=== PATIENT | female | born 1960 | race Caucasian/White ===

== ENCOUNTER 2016-10-01 17:11 | Emergency (ER) | payer BC, OTHER ==
[2016-10-01] MEDS ORDERED: SODIUM CHLORIDE 0.9% 1,000 ML IV ONE (17:27)
[2016-10-01 18:00] LABS: ALBUMIN/GLOBULIN RATIO 1.4 (1.0-2.2); BILIRUBIN,TOTAL 0.6 mg/dL (0.2-1.0); CALCIUM 9.7 mg/dL (8.5-10.3); CREATININE 0.8 mg/dL (0.4-1.0); POTASSIUM 2.9 mmol/L (3.5-5.0); TOTAL PROTEIN 7.9 g/dL (6.7-8.2)
[2016-10-01 18:06] LABS: BASOPHILS # (AUTO) 0.1 10^3/uL (0.0-0.1); BASOPHILS % (AUTO) 1.3 %; EOSINOPHILS # (AUTO) 0.2 10^3/uL (0.0-0.7); EOSINOPHILS % (AUTO) 1.8 %; HCT - HEMATOCRIT 38.5 % (37.0-47.0); HGB - HEMOGLOBIN 13.2 g/dL (12.0-16.0); LYMPHOCYTES # (AUTO) 2.7 10^3/uL (1.5-3.5); LYMPHOCYTES % (AUTO) 31.9 %; MEAN CORPUSCULAR HEMOGLOBIN 28.9 pg (27.0-31.0); MEAN CORPUSCULAR HGB CONC 34.3 g/dL (32.0-36.0); MEAN CORPUSCULAR VOLUME 84.4 fL (81.0-99.0); MEAN PLATELET VOLUME 8.1 fL (7.9-10.8); MONOCYTES # (AUTO) 0.6 10^3/uL (0.0-1.0); MONOCYTES % (AUTO) 7.1 %; NEUTROPHILS % (AUTO) 57.9 %; RED BLOOD COUNT 4.57 10^6/uL (4.20-5.40); RED CELL DISTRIBUTION WIDTH 13.8 % (12.0-15.0); UNCORRECTED WHITE BLOOD COUNT 8.6 x10^3/uL; WHITE BLOOD COUNT 8.6 x10^3/uL (4.8-10.8)
[2016-10-01 18:36] LABS: PLATELET ESTIMATE, MANUAL NORMAL (130-450,000) (NORMAL); PLATELET MORPHOLOGY RARE GIANT PLATELETS (NORMAL); WBC MORPHOLOGY (MULTIPLE) NORMAL APPEARANCE (NORMAL)
[2016-10-01] MEDS ORDERED: POTASSIUM CHLORIDE 20 MEQ TABLET PO STA (18:42)
--- NOTE | 2016-10-01 18:46 | ED Physician Documentation ---
PD HPI CHEST PAIN - Stated complaint Stated Complaint: DIZZY - Chief complaint Chief Complaint: Cardiac - History obtained from History obtained from: Patient - Additional information Additional information: Long H/O palpiations, had neg holter 3 yrs ago. Feels like heart skipping, v brief. No pain/dyspnea/dizzyness. Worse episode today for seconds and a few episodes therafter. Review of Systems Nose: denies: Rhinorrhea / runny nose, Congestion Throat: denies: Dental pain / toothache, Sore throat Cardiac: reports: Palpitations. denies: Chest pain / pressure, Pedal edema, Calf pain Respiratory: denies: Dyspnea PD PAST MEDICAL HISTORY - Past Medical History Past Medical History: Yes Cardiovascular: High cholesterol Respiratory: Asthma - Past Surgical History Past Surgical History: Yes /[employer]: Tubal ligation - Present Medications Home Medications: Ambulatory Orders Medication Instructions Recorded Confirmed Aspirin 1 tab PO DAILY 10/01/16 10/01/16 Rosuvastatin Calcium [Crestor] 10 mg PO DAILY 10/01/16 10/01/16 - Allergies Allergies/Adverse Reactions: Allergies Allergy/AdvReac Type Severity Reaction Status Date / Time No Known Drug Allergies Allergy Verified 10/01/16 17:16 - Social History Does the pt smoke?: No Smoking Status: Never smoker Does the pt drink ETOH?: No Does the pt have substance abuse?: No - Immunizations Immunizations are current?: Yes Immunizations: TDAP >10years/unknown PD ED PE NORMAL - Vitals Vital signs reviewed: Yes - General General: Alert and oriented X 3, No acute distress - Neck Neck: Supple, no meningeal sign, No bony TTP - Cardiac Cardiac: RRR, No murmur - Respiratory Respiratory: No respiratory distress, Clear bilaterally - Abdomen Abdomen: Non tender - Neuro Neuro: Alert and oriented X 3, Normal speech - Psych Psych: Normal mood, Normal affect Results - Vitals Vitals: Vital Signs - 24 hr 10/01/16 10/01/16 17:14 18:19 Temperature 36.7 C Heart Rate 127 H 107 H Respiratory 17 20 Rate Blood Pressure 165/85 H 152/83 H O2 Saturation 100 100 Oxygen O2 Source Room air - EKG (time done) 1723 Rate: Rate (enter#) (116) Rhythm: Sinus tachycardia [place]: Normal Intervals: Normal [place] QRS: Normal Ischemia: Normal ST segments Computer interpretation: Agree with computer - Labs Labs: Laboratory Tests 10/01/16 10/01/16 10/01/16 17:32 17:32 17:32 WBC 8.6 RBC 4.57 Hgb 13.2 Hct 38.5 MCV 84.4 MCH 28.9 MCHC 34.3 RDW 13.8 Plt Count 269 MPV 8.1 Neut # 5.0 Lymph # 2.7 Gillespie # 0.6 Eos # 0.2 Baso # 0.1 Absolute Nucleated RBC 0.00 Nucleated RBCs 0.0 Manual Slide Review Indicated WBC Morphology NORMAL APPEARANCE Platelet Estimate NORMAL (130-450,000) Platelet Morphology RARE GIANT PLATELETS RBC Morph Micro Appear NORMAL APPEARANCE Sodium 140 Potassium 2.9 L Chloride 104 Carbon Dioxide 23 Anion Gap 13.0 BUN 19 Creatinine 0.8 Estimated GFR (MDRD) 74 L Glucose 144 H Lactic Acid Calcium 9.7 Total Bilirubin 0.6 AST 21 ALT 23 Alkaline Phosphatase 96 Troponin I < 0.04 Total Protein 7.9 Albumin 4.6 Globulin 3.3 Albumin/Globulin Ratio 1.4 Lipase 29 10/01/16 17:32 WBC RBC Hgb Hct MCV MCH MCHC RDW Plt Count MPV Neut # Lymph # Gillespie # Eos # Baso # Absolute Nucleated RBC Nucleated RBCs Manual Slide Review WBC Morphology Platelet Estimate Platelet Morphology RBC Morph Micro Appear Sodium Potassium Chloride Carbon Dioxide Anion Gap BUN Creatinine Estimated GFR (MDRD) Glucose Lactic Acid 1.5 Calcium Total Bilirubin AST ALT Alkaline Phosphatase Troponin I Total Protein Albumin Globulin Albumin/Globulin Ratio Lipase PD MEDICAL DECISION MAKING - ED course ED course: She is asymptomatic here although she does remain tachycardic although that improves with time and reassurance. Given that she is asymptomatic here I doubt pulmonary embolism. Her history is most consistent with PVCs which may be related to hypokalemia. Departure - Departure Disposition: 01 Home, Self Care Clinical Impression: Palpitations, Hypokalemia Condition: Good Record reviewed to determine appropriate education?: Yes Instructions: Hypokalemia Dc, Heart Palpitations Follow-Up: Raquel Garza PA-C [Primary Care Provider] - Comments: Call your doctor to arrange a follow up appointment. Make the next available appointment. In the interim return anytime if worse or if new symptoms develop. Your blood pressure was elevated today on check in to the emergency department. This does not mean that you have hypertension, it is a common phenomenon to check into the emergency department and have elevated blood pressure. I recommend that you see your primary care physician within the week to have it rechecked when you're feeling better.
[2016-10-01] MEDS ORDERED: POTASSIUM CHLORIDE 20 MEQ TABLET PO ONE (18:57)
[2016-10-01 19:01] VITALS: BP 150/78
== END 2016-10-01 19:05 | disposition home or self-care (01) ==
LOC: ED 17:11
DX: R00.2 Palpitations (principal); E87.6 Hypokalemia; R03.0 Elevated blood-pressure reading, without diagnosis of hypertension; E78.00 Pure hypercholesterolemia, unspecified; J45.909 Unspecified asthma, uncomplicated; Z79.82 Long term (current) use of aspirin
CPT/HCPCS: 36415; 80053; 83605; 83690; 84484; 85025; 93005; 99283; 99284; A9270

== ENCOUNTER 2016-10-06 07:09 | Outpatient (CLI) | payer BC ==
[2016-10-06 10:20] LABS: BASOPHILS % (AUTO) 0.6 %; EOSINOPHILS # (AUTO) 0.1 10^3/uL (0.0-0.7); EOSINOPHILS % (AUTO) 1.9 %; HGB - HEMOGLOBIN 13.3 g/dL (12.0-16.0); LYMPHOCYTES # (AUTO) 1.4 10^3/uL (1.5-3.5); LYMPHOCYTES % (AUTO) 32.2 %; MEAN CORPUSCULAR HEMOGLOBIN 29.1 pg (27.0-31.0); MEAN CORPUSCULAR HGB CONC 34.2 g/dL (32.0-36.0); MEAN CORPUSCULAR VOLUME 85.1 fL (81.0-99.0); MEAN PLATELET VOLUME 9.6 fL (7.9-10.8); MONOCYTES # (AUTO) 0.4 10^3/uL (0.0-1.0); MONOCYTES % (AUTO) 9.5 %; NEUTROPHILS # (AUTO) 2.5 10^3/uL (1.5-6.6); NEUTROPHILS % (AUTO) 55.8 %; RED BLOOD COUNT 4.59 10^6/uL (4.20-5.40); RED CELL DISTRIBUTION WIDTH 13.6 % (12.0-15.0); UNCORRECTED WHITE BLOOD COUNT 4.4 x10^3/uL; WHITE BLOOD COUNT 4.4 x10^3/uL (4.8-10.8)
[2016-10-06 10:42] LABS: ALBUMIN/GLOBULIN RATIO 1.3 (1.0-2.2); BILIRUBIN,TOTAL 1.2 mg/dL (0.2-1.0); BUN - BLOOD UREA NITROGEN 16 mg/dL (6-20); CALCIUM 9.4 mg/dL (8.5-10.3); CARBON DIOXIDE - CO2 24 mmol/L (21-32); CHLORIDE 106 mmol/L (101-111); CHOL/HDL RATIO 3.5 (<4.4); CHOLESTEROL 183 mg/dL; CREATININE 0.7 mg/dL (0.4-1.0); GFR - MDRD 86 (>89); GLUCOSE 96 mg/dL (70-100); HDL CHOLESTEROL 52 mg/dL; LDL/HDL RATIO 2.2 (<4.4); POTASSIUM 3.6 mmol/L (3.5-5.0); SODIUM 138 mmol/L (135-145); TOTAL PROTEIN 8.1 g/dL (6.7-8.2); TRIGLYCERIDES 93 mg/dL; VLDL CHOLESTEROL 19 mg/dL
[2016-10-06 10:44] LABS: PLATELET MORPHOLOGY RARE GIANT PLATELETS (NORMAL)
== END 2016-10-06 07:10 | disposition home or self-care (01) ==
LOC: LAB.F 07:09
PROVIDERS: ATTEND Physician Assistant Medical
DX: E78.5 Hyperlipidemia, unspecified (principal); F41.9 Anxiety disorder, unspecified; Z79.899 Other long term (current) drug therapy
CPT/HCPCS: 36415; 80053; 80061; 84443; 85025

== ENCOUNTER 2016-10-23 07:57 | Outpatient (CLI) | payer BC | END 2016-10-23 07:58 | disposition home or self-care (01) | LOC: LAB.F 07:57 | PROVIDERS: ATTEND Physician Assistant Medical | DX: R00.2 Palpitations (principal) | CPT/HCPCS: 36415; 84443 ==

== ENCOUNTER 2016-10-27 10:08 | Outpatient (CLI) | payer BC ==
--- NOTE | 2016-10-28 10:25 | Mammography Report ---
DIGITAL BILATERAL SCREENING MAMMOGRAM: 10/27/2016 CLINICAL HISTORY: A 55-year-old female in for routine screening mammogram. Patient has family histo ry of breast cancer. Patient's aunt had breast cancer at age 40 and a cousin had breast cancer at ag e 30. The patient has had no prior surgeries. COMPARISON: 01/18/2007, 11/23/2008, 12/05/2009, 02/20/2011, 05/12/2012, 10/26/2013, 02/12/2015 TECHNIQUE: Craniocaudad and oblique lateral views of each breast were obtained with [facility] digital mammography. FINDINGS: Breast parenchyma consists of scattered fibroglandular densities. No significant clusters of calcification are seen. No significant masses are noted. No change is se en. IMPRESSION: BREASTS APPEAR RADIOGRAPHICALLY BENIGN. BIRADS CATEGORY 1 - NEGATIVE. RECOMMENDATIONS: Annual bilateral screening mammography. STANDARD QUALIFYING STATEMENTS 1. This examination was reviewed with the aid of Computer-Aided Detection (CAD). 2. A negative or benign imaging report should not delay biopsy if clinically suspicious findings are present. Consider surgical consultation if warranted. More than 5% of cancers are not identified by i kiersten. 3. Dense breasts may obscure an underlying neoplasm. JOB #: [id number] EXT JOB #:[id number]
== END 2016-10-27 10:09 | disposition home or self-care (01) ==
LOC: DI.S 10:08
PROVIDERS: ATTEND Physician Assistant Medical
DX: Z12.31 Encounter for screening mammogram for malignant neoplasm of breast (principal)
CPT/HCPCS: 77067

== ENCOUNTER 2017-11-16 15:47 | Emergency (ER) | payer BC ==
[2017-11-16] MEDS ORDERED: METOPROLOL 5 MG/5 ML VIAL IVP STA (16:19)
--- NOTE | 2017-11-16 16:22 | ED Physician Documentation ---
PD HPI CHEST PAIN - Stated complaint Stated Complaint: RAPID HR/PALPITATIONS - Chief complaint Chief Complaint: Cardiac - History obtained from History obtained from: Patient - History of Present Illness Timing - onset: Yesterday (This is a 56-year-old woman with long history of intermittent palpitations with negative workups in the past. She has had a Holter in the past without clear diagnosis. She saw her lay up operator last December who posited that it might be sensitivity to epinephrine and she was prescribed a as needed dose of metoprolol which really has not tried. Since yesterday she had intermittent sensation of flip-flopping of her heart that was happening about once every 10 minutes and then a brief episode of rapid heart rate last night. She still feels a persistent buzzing in her chest but denies chest pain or trouble breathing. No recent travel or pedal edema.) Review of Systems Constitutional: reports: Fatigue. denies: Fever, Chills Eyes: reports: Reviewed and negative Cardiac: reports: Palpitations. denies: Chest pain / pressure, Pedal edema, Calf pain Respiratory: denies: Dyspnea, Cough PD PAST MEDICAL HISTORY - Past Medical History Past Medical History: Yes Cardiovascular: High cholesterol Respiratory: Asthma - Past Surgical History Past Surgical History: Yes /[employer]ILDER: Tubal ligation - Present Medications Home Medications: Ambulatory Orders Medication Instructions Recorded Confirmed Aspirin 1 tab PO DAILY 10/01/16 10/01/16 Rosuvastatin Calcium [Crestor] 10 mg PO DAILY 10/01/16 10/01/16 Magnesium 11/16/17 - Allergies Allergies/Adverse Reactions: Allergies Allergy/AdvReac Type Severity Reaction Status Date / Time No Known Drug Allergies Allergy Verified 11/16/17 15:51 - Social History Does the pt smoke?: No Smoking Status: Never smoker Does the pt drink ETOH?: No Does the pt have substance abuse?: No - Immunizations Immunizations are current?: Yes Immunizations: TDAP >10years/unknown PD ED PE NORMAL - Vitals Vital signs reviewed: Yes - General General: Alert and oriented X 3, No acute distress - HEENT HEENT: PERRL, EOMI - Neck Neck: Supple, no meningeal sign, No bony TTP - Cardiac Cardiac: RRR, No murmur - Respiratory Respiratory: No respiratory distress, Clear bilaterally - Abdomen Abdomen: Non tender - Extremities Extremities: No edema, No calf tenderness / cord - Neuro Neuro: Alert and oriented X 3, Normal speech Results - Vitals Vitals: Vital Signs - 24 hr 11/16/17 11/16/17 11/16/17 15:49 16:30 16:33 Temperature 36.9 C Heart Rate 118 H 89 79 Respiratory 22 12 15 Rate Blood Pressure 153/70 H 144/86 H 140/77 H O2 Saturation 99 100 11/16/17 11/16/17 16:53 17:18 Temperature Heart Rate 78 80 Respiratory 11 L 23 Rate Blood Pressure 132/81 H 126/77 O2 Saturation 100 97 Oxygen O2 Source Room air - EKG (time done) 1558 Rate: Rate (enter#) (106) Rhythm: Sinus tachycardia [place]: Normal Intervals: Normal [place] QRS: Normal Ischemia: Normal ST segments Computer interpretation: Agree with computer - Labs Labs: Laboratory Tests 11/16/17 11/16/17 11/16/17 16:10 16:10 16:10 WBC 7.7 RBC 4.66 Hgb 13.7 Hct 39.9 MCV 85.6 MCH 29.5 MCHC 34.4 RDW 13.3 Plt Count 321 MPV 6.9 L Neut # (Auto) 4.2 Lymph # (Auto) 2.6 [place] # (Auto) 0.8 Eos # (Auto) 0.1 Baso # (Auto) 0.1 Absolute Nucleated RBC 0.01 Nucleated RBC % 0.1 Sodium 137 Potassium 3.1 L Chloride 104 Carbon Dioxide 25 Anion Gap 8.0 BUN 14 Creatinine 0.6 Estimated GFR (MDRD) 103 Glucose 105 H Calcium 9.6 Total Bilirubin 0.8 AST 24 ALT 25 Alkaline Phosphatase 87 Troponin I < 0.04 Total Protein 8.3 H Albumin 4.3 Globulin 4.0 Albumin/Globulin Ratio 1.1 Lipase 34 TSH 11/16/17 16:10 WBC RBC Hgb Hct MCV MCH MCHC RDW Plt Count MPV Neut # (Auto) Lymph # (Auto) Douglas # (Auto) Eos # (Auto) Baso # (Auto) Absolute Nucleated RBC Nucleated RBC % Sodium Potassium Chloride Carbon Dioxide Anion Gap BUN Creatinine Estimated GFR (MDRD) Glucose Calcium Total Bilirubin AST ALT Alkaline Phosphatase Troponin I Total Protein Albumin Globulin Albumin/Globulin Ratio Lipase TSH 3.94 PD MEDICAL DECISION MAKING - ED course ED course: She admits to some level of anxiety. While we were talking her heart rate drifted down into the mid 80s without specific intervention. Otherwise she had no ectopy on the monitor here and was relatively asymptomatic here. Seems to be a recurrent issue. - Sepsis Event Vital Signs: Vital Signs - 24 hr 11/16/17 11/16/17 11/16/17 15:49 16:30 16:33 Temperature 36.9 C Heart Rate 118 H 89 79 Respiratory 22 12 15 Rate Blood Pressure 153/70 H 144/86 H 140/77 H O2 Saturation 99 100 11/16/17 11/16/17 16:53 17:18 Temperature Heart Rate 78 80 Respiratory 11 L 23 Rate Blood Pressure 132/81 H 126/77 O2 Saturation 100 97 Oxygen O2 Source Room air Departure - Departure Disposition: 01 Home, Self Care Clinical Impression: Palpitations, Hypokalemia Condition: Good Instructions: Hypokalemia Dc Comments: Call your doctor to arrange a follow-up appointment, make the next available appointment. In the interim, return anytime if worse or if new symptoms develop. Discharge Date/Time: 11/16/17 17:19
[2017-11-16 16:28] LABS: BASOPHILS # (AUTO) 0.1 10^3/uL (0.0-0.1); BASOPHILS % (AUTO) 1.1 %; EOSINOPHILS # (AUTO) 0.1 10^3/uL (0.0-0.7); EOSINOPHILS % (AUTO) 1.7 %; HGB - HEMOGLOBIN 13.7 g/dL (12.0-16.0); LYMPHOCYTES # (AUTO) 2.6 10^3/uL (1.5-3.5); LYMPHOCYTES % (AUTO) 32.9 %; MEAN CORPUSCULAR HEMOGLOBIN 29.5 pg (27.0-31.0); MEAN CORPUSCULAR HGB CONC 34.4 g/dL (32.0-36.0); MEAN CORPUSCULAR VOLUME 85.6 fL (81.0-99.0); MEAN PLATELET VOLUME 6.9 fL (7.9-10.8); MONOCYTES # (AUTO) 0.8 10^3/uL (0.0-1.0); MONOCYTES % (AUTO) 9.7 %; NEUTROPHILS # (AUTO) 4.2 10^3/uL (1.5-6.6); NEUTROPHILS % (AUTO) 54.6 %; PLT - PLATELET COUNT 321 10^3/uL (130-450); RED BLOOD COUNT 4.66 10^6/uL (4.20-5.40); RED CELL DISTRIBUTION WIDTH 13.3 % (12.0-15.0); WHITE BLOOD COUNT 7.7 x10^3/uL (4.8-10.8)
[2017-11-16 16:42] LABS: ALBUMIN 4.3 g/dL (3.2-5.5); ALBUMIN/GLOBULIN RATIO 1.1 (1.0-2.2); BILIRUBIN,TOTAL 0.8 mg/dL (0.2-1.0); CALCIUM 9.6 mg/dL (8.5-10.3); CREATININE 0.6 mg/dL (0.4-1.0); TOTAL PROTEIN 8.3 g/dL (6.7-8.2)
[2017-11-16] MEDS ORDERED: POTASSIUM BICARB 25 MEQ TABLET PO STA (17:06)
[2017-11-16 17:19] VITALS: BP 126/77
== END 2017-11-16 17:19 | disposition home or self-care (01) ==
LOC: ED 15:47
DX: R00.2 Palpitations (principal); E87.6 Hypokalemia; R00.0 Tachycardia, unspecified; E78.00 Pure hypercholesterolemia, unspecified
CPT/HCPCS: 36415; 80053; 83690; 84443; 84484; 85025; 93005; 96374; 99283; 99284; A9270

== ENCOUNTER 2017-12-02 09:03 | Outpatient (CLI) | payer BC ==
[2017-12-02 17:58] LABS: CALCIUM 9.3 mg/dL (8.5-10.3); CREATININE 0.8 mg/dL (0.4-1.0)
== END 2017-12-02 09:04 | disposition home or self-care (01) ==
LOC: LAB.F 09:03
PROVIDERS: ATTEND Physician Assistant Medical
DX: E87.6 Hypokalemia (principal)
CPT/HCPCS: 36415; 80048

== ENCOUNTER 2018-06-21 09:55 | Outpatient (CLI) | payer BC ==
--- NOTE | 2018-06-22 10:14 | Mammography Report ---
Reason: SCREENING MAMMO Procedure Date: 06/21/2018 Accession Number: [id number] / [id number] Procedure: [facility] - Screening Mammo w/Johnson CPT Code: FULL RESULT: EXAM: Screening Mammo w/Johnson DATE: 06/21/2018 10:32 AM CLINICAL HISTORY: Routine screening. No reported personal history of breast cancer. Family history of breast cancer in maternal aunt age 50 also BRCA positive. Paternal cousin age 30. TECHNIQUE: Bilateral CC and MLO views were obtained. COMPARISON: 10/27/2016 through 05/12/2012 FINDINGS: The breasts demonstrate scattered fibroglandular densities bilaterally. Bilateral breasts: There are no suspicious masses, calcifications or areas of distortion. IMPRESSION: Negative examination RECOMMENDATION: Routine annual screening unless otherwise clinically indicated. Given family history, patient may be at increased risk for development of breast cancer. Formal risk assessment with a genetic counselor should be considered; patient may benefit from advanced screening practices and/or risk reduction strategies if there is sufficient assessed risk. BI-RADS CATEGORY negative STANDARD QUALIFYING STATEMENTS: 1. This examination was not reviewed with the aid of Computer-Aided Detection (CAD). 2. A negative or benign imaging report should not preclude biopsy if clinically suspicious findings are present. 3. Dense breasts may obscure an underlying neoplasm. 4. This examination was reviewed with the aid of 3D breast imaging (tomosynthesis).
== END 2018-06-21 09:56 | disposition home or self-care (01) ==
LOC: DI 09:55
DX: Z12.31 Encounter for screening mammogram for malignant neoplasm of breast (principal); Z80.3 Family history of malignant neoplasm of breast
CPT/HCPCS: 77063; 77067

== ENCOUNTER 2019-05-04 07:30 | Outpatient (CLI) | payer BC ==
[2019-05-04 10:42] LABS: BASOPHILS % (AUTO) 0.5 %; EOSINOPHILS # (AUTO) 0.1 10^3/uL (0.0-0.7); EOSINOPHILS % (AUTO) 2.8 %; HGB - HEMOGLOBIN 13.6 g/dL (12.0-16.0); LYMPHOCYTES # (AUTO) 1.6 10^3/uL (1.5-3.5); LYMPHOCYTES % (AUTO) 36.9 %; MEAN CORPUSCULAR HEMOGLOBIN 28.3 pg (27.0-31.0); MEAN CORPUSCULAR HGB CONC 32.1 g/dL (32.0-36.0); MEAN CORPUSCULAR VOLUME 88.3 fL (81.0-99.0); MEAN PLATELET VOLUME 11.1 fL (7.9-10.8); MONOCYTES # (AUTO) 0.4 10^3/uL (0.0-1.0); MONOCYTES % (AUTO) 10.1 %; NEUTROPHILS # (AUTO) 2.1 10^3/uL (1.5-6.6); NEUTROPHILS % (AUTO) 49.5 %; PLT - PLATELET COUNT 312 10^3/uL (130-450); RED CELL DISTRIBUTION WIDTH 12.6 % (12.0-15.0); WHITE BLOOD COUNT 4.3 x10^3/uL (4.8-10.8)
[2019-05-04 11:02] LABS: ALBUMIN 4.2 g/dL (3.2-5.5); ALBUMIN/GLOBULIN RATIO 1.2 (1.0-2.2); ALKALINE PHOSPHATASE 89 IU/L (42-121); ALT ALANINE AMINOTRANSFERASE 22 IU/L (10-60); AST ASPARTATE AMINOTRANSFERASE 21 IU/L (10-42); BILIRUBIN,TOTAL 0.9 mg/dL (0.2-1.0); BUN - BLOOD UREA NITROGEN 17 mg/dL (6-20); CALCIUM 9.3 mg/dL (8.5-10.3); CARBON DIOXIDE - CO2 25 mmol/L (21-32); CHLORIDE 105 mmol/L (101-111); CHOL/HDL RATIO 5.1 (<4.4); CHOLESTEROL 225 mg/dL; CREATININE 0.8 mg/dL (0.4-1.0); GFR - MDRD 73 (>89); GLUCOSE 97 mg/dL (70-100); HDL CHOLESTEROL 44 mg/dL; LDL CHOLESTEROL,CALCULATED 157 mg/dL; LDL/HDL RATIO 3.6 (<4.4); SODIUM 139 mmol/L (135-145); TOTAL PROTEIN 7.6 g/dL (6.7-8.2); VLDL CHOLESTEROL 24 mg/dL
== END 2019-05-04 07:31 | disposition home or self-care (01) ==
LOC: LAB.S 07:30
PROVIDERS: ATTEND Physician Assistant Medical
DX: E87.6 Hypokalemia (principal); E78.5 Hyperlipidemia, unspecified; R00.2 Palpitations; J45.998 Other asthma
CPT/HCPCS: 36415; 80053; 80061; 83721; 84443; 85025

== ENCOUNTER 2020-10-24 08:33 | Outpatient (CLI) | payer BC ==
[2020-10-24 11:58] LABS: ALBUMIN 4.5 g/dL (3.2-5.5); ALBUMIN/GLOBULIN RATIO 1.3 (1.0-2.2); ALKALINE PHOSPHATASE 96 IU/L (42-121); ALT ALANINE AMINOTRANSFERASE 25 IU/L (10-60); AST ASPARTATE AMINOTRANSFERASE 21 IU/L (10-42); BUN - BLOOD UREA NITROGEN 17 mg/dL (6-20); CALCIUM 9.5 mg/dL (8.5-10.3); CARBON DIOXIDE - CO2 27 mmol/L (21-32); CHLORIDE 103 mmol/L (101-111); CHOLESTEROL 190 mg/dL; CREATININE 0.6 mg/dL (0.4-1.0); GFR - MDRD 102 (>89); GLUCOSE 108 mg/dL (70-100); HDL CHOLESTEROL 48 mg/dL; LDL CHOLESTEROL,CALCULATED 110 mg/dL; LDL/HDL RATIO 2.3 (<4.4); POTASSIUM 3.8 mmol/L (3.5-5.0); SODIUM 140 mmol/L (135-145); TOTAL PROTEIN 8.1 g/dL (6.7-8.2); TRIGLYCERIDES 160 mg/dL; VLDL CHOLESTEROL 32 mg/dL
[2020-10-24 12:06] LABS: BASOPHILS % (AUTO) 0.8 %; EOSINOPHILS # (AUTO) 0.2 10^3/uL (0.0-0.7); EOSINOPHILS % (AUTO) 3.7 %; HCT - HEMATOCRIT 41.5 % (37.0-47.0); HGB - HEMOGLOBIN 13.6 g/dL (12.0-16.0); LYMPHOCYTES # (AUTO) 1.5 10^3/uL (1.5-3.5); LYMPHOCYTES % (AUTO) 28.9 %; MEAN CORPUSCULAR HEMOGLOBIN 29.3 pg (27.0-31.0); MEAN CORPUSCULAR HGB CONC 32.8 g/dL (32.0-36.0); MEAN CORPUSCULAR VOLUME 89.4 fL (81.0-99.0); MEAN PLATELET VOLUME 11.1 fL (7.9-10.8); MONOCYTES # (AUTO) 0.5 10^3/uL (0.0-1.0); MONOCYTES % (AUTO) 9.4 %; NEUTROPHILS % (AUTO) 56.8 %; PLT - PLATELET COUNT 309 10^3/uL (130-450); RED BLOOD COUNT 4.64 10^6/uL (4.20-5.40); RED CELL DISTRIBUTION WIDTH 12.7 % (12.0-15.0); WHITE BLOOD COUNT 5.2 x10^3/uL (4.8-10.8)
[2020-10-24 12:12] LABS: THYROID STIMULATING HORMONE 2.18 uIU/mL (0.34-5.60)
== END 2020-10-24 08:34 | disposition home or self-care (01) ==
LOC: LAB.WCP 08:33
PROVIDERS: ATTEND Physician Assistant Medical
DX: Z00.00 Encounter for general adult medical examination without abnormal findings (principal); E87.6 Hypokalemia; E78.5 Hyperlipidemia, unspecified
CPT/HCPCS: 36415; 80053; 80061; 83721; 84443; 85025

== ENCOUNTER 2020-11-07 07:40 | Outpatient (CLI) | payer BC ==
--- NOTE | 2020-11-08 12:13 | Mammography Report ---
BILATERAL DIGITAL SCREENING MAMMOGRAM 3D/2D: 11/07/2020 CLINICAL: Family history of breast cancer. Comparison is made to exams dated: 06/21/2018 mammogram, 10/27/2016 mammogram, and 02/12/2015 mammogram - [facility]. The tissue of both breasts is heterogeneously dense. This may lower the sensitivity of mammography. No significant masses, calcifications, or other findings are seen in either breast. There has been no significant interval change. IMPRESSION: NEGATIVE There is no mammographic evidence of malignancy. A 1 year screening mammogram is recommended. This exam was interpreted at Station ID: [id number]. NOTE: For mammograms, a report in lay terms will be sent to the patient. Approximately 15% of breast malignancies will not be visualized mammographically. In the management of a palpable breast mass, a negative mammogram must not discourage biopsy of a clinically suspicious lesion. Electronically Signed By: Willy Vivas M.D. ddp/penrad:11/07/2020 08:31:50 ACR BI-RADS Category 1: Negative 3341F PARENCHYMAL PATTERN: (D) - The breast(s) demonstrate(s) heterogeneously dense fibroglandular alicia morrison. BI-RADS CATEGORY: (1) - 1 RECOMMENDATION: (ANNUAL) - Recommend routine annual screening mammography. [id number] 1 year screening LATERALITY: (B)
== END 2020-11-07 07:41 | disposition home or self-care (01) ==
LOC: DI.S 07:40
DX: Z12.31 Encounter for screening mammogram for malignant neoplasm of breast (principal); Z80.3 Family history of malignant neoplasm of breast

== ENCOUNTER 2020-11-14 08:00 | Outpatient (CLI) | payer BC | END 2020-11-14 23:59 | disposition home or self-care (01) | LOC: LAB.WCP 08:00 | PROVIDERS: ATTEND Physician Assistant Medical | DX: R10.32 Left lower quadrant pain (principal) | CPT/HCPCS: 87086 ==

== ENCOUNTER 2020-11-14 12:01 | Outpatient (CLI) | payer BC ==
[2020-11-14] MEDS ORDERED: IOPAMIDOL-300 100 ML VIAL ONE (12:08)
[2020-11-14] MEDS ORDERED: IOVERSOL 320 50 ML VIAL ONE (12:08)
[2020-11-14] MEDS ORDERED: IOVERSOL 320 50 ML VIAL PO ONE (13:31)
[2020-11-14] MEDS ORDERED: IOPAMIDOL-300 100 ML VIAL IVP ONE (13:32)
--- NOTE | 2020-11-14 13:45 | CT Report ---
PROCEDURE: Abdomen/Pelvis W INDICATIONS: LLQ ABDOMINAL PAIN CONTRAST: IV CONTRAST: Isovue 300 ml: 100 PO CONTRAST: Optiray 320 ml50 TECHNIQUE: After the administration of oral and IV contrast, 5 mm thick sections acquired from the diaphragms to the symphysis. 5 mm thick coronal and sagittal reformats were acquired. For radiation dose reducti on, the following was used: automated exposure control, adjustment of mA and/or kV according to edward ent size. COMPARISON: None. FINDINGS: ABDOMEN: Lung bases: 4 mm nodule seen in the posterior right lower lobe, technically indeterminate. Heart:Normal. Liver: There are low-attenuation lesions in the left hepatic lobe measuring up to 2.4 cm, possibly cy sts or hemangiomas, technically indeterminate. Additional hepatic foci statistically representing cys ts although technically indeterminate due to small size. Gallbladder: Normal. Bile ducts: Normal. Pancreas: Normal. Spleen: Normal. Adrenals: Normal. Kidneys and ureters: Bilateral renal cortical thinning. No hydronephrosis. Punctate calculus in the l ower pole the right kidney on image 31/3. Stomach and duodenum: Normal. Bowel: Colonic diverticulosis incidentally noted without evidence of acute inflammation. Normal appendix. Other: No free fluid or air. Abdominal nodes: Normal. Aorta: Normal in size. IVC: Normal. Ventral wall: Normal. PELVIS: Bladder: Normal. Pelvic nodes: Normal. Inguinal: No hernia. Bones: No vertebral body compression fracture. No suspicious bone lesion. Diffuse spondylitic changes and facet arthropathy. IMPRESSION: Overall, no acute abnormality. Numerous colonic diverticula however no definite focally inflamed dive rticulitis identified. Indeterminate hepatic lesions as detailed above. These could be surveilled with continued ultrasound follow-up to document long-term stability and exclude metastatic or malignant etiologies. Bilateral renal cortical scarring and atrophy. Nonobstructive punctate calculus seen in the lower maggi e the right kidney. 4 mm posterior right lower lobe pulmonary nodule which is also nonspecific and age indeterminate. Rec ommend follow-up with CT chest in one year to document stability and exclude early malignant process. Reviewed by: Daquan Flores MD on 11/14/2020 1:44 PM PDT Approved by: Daquan Flores MD on 11/14/2020 1:44 PM PDT Station ID: [id number]
== END 2020-11-14 12:02 | disposition home or self-care (01) ==
LOC: DI 12:01
PROVIDERS: ATTEND Physician Assistant Medical
DX: R10.32 Left lower quadrant pain (principal); K57.90 Diverticulosis of intestine, part unspecified, without perforation or abscess without bleeding; R93.2 Abnormal findings on diagnostic imaging of liver and biliary tract; N20.0 Calculus of kidney; N26.1 Atrophy of kidney (terminal); R91.1 Solitary pulmonary nodule
CPT/HCPCS: 74177; 87086; Q9967

== ENCOUNTER 2021-01-08 11:17 | Day surgery (SDC) | payer BC ==
[2021-01-08] MEDS ORDERED: LACTATED RINGERS 1,000 ML IV ONE ×2 (11:41→13:01)
--- NOTE | 2021-01-08 12:00 | ANESTHESIA ---
Pre-Anesthesia VS, & Labs - Diagnosis screening - Procedure Colonoscopy Vital Signs: Temp Pulse Resp BP Pulse Ox 36.7 C 98 18 151/83 H 99 01/08/21 11:34 01/08/21 11:34 01/08/21 11:34 01/08/21 11:34 01/08/21 11:34 Height: 5 ft 1 in Weight (kg): 58 kg Body Mass Index: 24.1 BMI Classification: Healthy weight - NPO >8 hours - Is Patient ?: No - Lab Results Lab results reviewed: Yes Home Medications and Allergies Aspirin 1 tab PO DAILY 10/01/16 Rosuvastatin Calcium [Crestor] 10 mg PO DAILY 10/01/16 Magnesium 250 mg PO DAILY 11/16/17 Allergies/Adverse Reactions: Allergies Allergy/AdvReac Type Severity Reaction Status Date / Time simvastatin [From Zocor] AdvReac Unknown Verified 01/08/21 11:32 Anes History & Medical History - Anesthetic History Anesthesia Complications: reports: No previous complications Family history of Anesthesia Complications: Denies Family history of Malignant Hyperthermia: Denies - Medical History Cardiovascular: reports: High cholesterol, Arrhythmia Pulmonary: reports: Asthma Gastrointestinal: reports: None Urinary: reports: None Musculoskeletal: reports: None Endocrine/Autoimmune: reports: None Skin: reports: None Smoking Status: Never smoker - Surgical History General: reports: Colonoscopy Gynecologic: reports: Tubal ligation Exam General: Alert, Oriented x3, Cooperative, No acute distress Dental: WNL Mouth Openin Fingerbreadth Neck Mobility: Normal Mallampati classification: II Respiratory: Lungs clear, Normal breath sounds, No respiratory distress, No accessory muscle use Cardiovascular: Regular rate, Normal S1, Normal S2, No murmurs Plan Anesthesia Type: General, Total IV Consent for Procedure(s) Verified and Reviewed: Yes Code Status: Attempt Resuscitation ASA classification: 2-Mild systemic disease Is this case an emergency?: No
[2021-01-08] MEDS ORDERED: LIDOCAINE-MPF 2% 5 ML VIAL ONE (12:44)
[2021-01-08] MEDS ORDERED: ACETAMINOPHEN 1,000 MG/100 ML 100 ML IV ONE (13:29)
[2021-01-08] MEDS ORDERED: PROPOFOL 200 MG/20 ML VIAL IVP ONE (13:38)
[2021-01-08 14:18] VITALS: BP 117/68
--- NOTE | 2021-01-08 14:21 | ANESTHESIA POST OP EVALUATION ---
Anesthesia Post Eval - Post Anesthesia Eval Vitals: Last Vital Signs Temp 36.6 C 01/08/21 14:05 Pulse 80 01/08/21 14:05 Resp 19 01/08/21 14:05 BP 117/68 01/08/21 14:05 Pulse Ox 100 01/08/21 14:05 CV Function Including HR & BP: Stable Pain Control: Satisfactory Nausea & Vomiting: Negative Mental Status: Baseline Respiratory Status: Airway Patent Hydration Status: Satisfactory Anesthesia Complications: None
== END 2021-01-08 11:18 | disposition home or self-care (01) ==
LOC: SDS 11:17
PROVIDERS: ATTEND Surgery
DX: Z12.11 Encounter for screening for malignant neoplasm of colon (principal); K57.30 Diverticulosis of large intestine without perforation or abscess without bleeding; K64.8 Other hemorrhoids; F41.9 Anxiety disorder, unspecified; J45.909 Unspecified asthma, uncomplicated
CPT/HCPCS: 45378; J0131; J7120

== ENCOUNTER 2021-01-14 14:13 | Outpatient (CLI) | payer BC ==
[2021-01-14 19:59] LABS: BILIRUBIN,URINE NEGATIVE (NEGATIVE); GLUCOSE, URINE (UA) NEGATIVE (NEGATIVE); KETONES,URINE (UA) NEGATIVE (NEGATIVE); LEUKOCYTE ESTERASE, URINE NEGATIVE (NEGATIVE); NITRITE,URINE NEGATIVE (NEGATIVE); OCCULT BLOOD,URINE TRACE-INTA (NEGATIVE); PH,URINE 6.5 PH (5.0-7.5); PROTEIN,URINE NEGATIVE (NEGATIVE); UROBILINOGEN,URINE 0.2 (NORMAL) E.U./dL (NORMAL)
[2021-01-14 20:01] LABS: BACTERIA,URINE None Seen /HPF (None Seen); CLARITY,URINE CLEAR (CLEAR); RBC,URINE 0-5 /HPF (0-5); SQUAMOUS EPITHELIAL CELL,UR RARE Squamous (<= Few); WBC,URINE 0-3 /HPF (0-5)
== END 2021-01-14 23:59 | disposition home or self-care (01) ==
LOC: LAB.S 14:13
PROVIDERS: ATTEND Physician Assistant Medical
DX: R10.2 Pelvic and perineal pain (principal); N39.0 Urinary tract infection, site not specified
CPT/HCPCS: 81001; 87086

== ENCOUNTER 2021-02-08 14:45 | Outpatient (CLI) | payer BC ==
[2021-02-08 15:16] LABS: CREATININE 0.6 mg/dL (0.4-1.0); POTASSIUM 3.5 mmol/L (3.5-5.0)
[2021-02-08 15:32] LABS: BILIRUBIN,URINE NEGATIVE (NEGATIVE); GLUCOSE, URINE (UA) NEGATIVE (NEGATIVE); KETONES,URINE (UA) TRACE mg/dL (NEGATIVE); LEUKOCYTE ESTERASE, URINE TRACE (NEGATIVE); NITRITE,URINE NEGATIVE (NEGATIVE); OCCULT BLOOD,URINE MODERATE (NEGATIVE); PH,URINE 5.5 PH (5.0-7.5); PROTEIN,URINE NEGATIVE (NEGATIVE); UROBILINOGEN,URINE 0.2 (NORMAL) E.U./dL (NORMAL)
[2021-02-08 15:37] LABS: CLARITY,URINE CLEAR (CLEAR)
[2021-02-08 16:52] LABS: BACTERIA,URINE Few /HPF (None Seen); RBC,URINE 0-5 /HPF (0-5); SQUAMOUS EPITHELIAL CELL,UR RARE Squamous (<= Few); WBC,URINE 0-3 /HPF (0-5)
== END 2021-02-08 14:46 | disposition home or self-care (01) ==
LOC: LAB 14:45
PROVIDERS: ATTEND Surgery
DX: N39.0 Urinary tract infection, site not specified (principal); R10.2 Pelvic and perineal pain
CPT/HCPCS: 36415; 80048; 81001; 87086

== ENCOUNTER 2021-02-11 07:01 | Outpatient (CLI) | payer BC ==
--- NOTE | 2021-02-11 11:57 | Ultrasound Report ---
PROCEDURE: Abdomen Limited INDICATIONS: LIVER MASS TECHNIQUE: Real-time focused scanning was performed of the abdomen, with image documentation. COMPARISON: 11/14/2020, and concurrent CT abdomen pelvis 02/11/2021 FINDINGS: The liver demonstrates normal size and parenchymal echotexture. There are several areas of irregular, but well-defined hypoechogenicity in both hepatic lobes corresponding to CT findings of c ysts. Intrinsically mainly anechoic, septated structures measure up to 1.3 cm in the right hepatic lo be and 2.8 cm and the left hepatic lobe. No suspicious vascularity, solid mass, or intrahepatic biliary dilatation. The visible portion of the pancreas, gallbladder, biliary tree, and right kidney are normal. No free fluid in the right upper quadrant of the abdomen. IMPRESSION: 1. Right and left lobe irregular, septated hepatic cysts. No suspicious features. Reviewed by: Megan Ybarra MD on 02/11/2021 11:55 AM PDT Approved by: Megan Ybarra MD on 02/11/2021 11:55 AM PDT Station ID: [id number]
--- NOTE | 2021-02-11 16:09 | CT Report ---
PROCEDURE: CHEST W INDICATIONS: LUNG MASS CONTRAST: IV CONTRAST: Optiray 320 ml: 100 PO CONTRAST: Optiray 320 ml50 TECHNIQUE: After the administration of intravenous contrast, 1 mm axial images were acquired from the pulmonary apices through the posterior costophrenic angles. Axial 5 mm soft tissue kernel reconstructions were performed as well as 8 mm axial MIP and coronal and sagittal 5 mm reformations. For radiation dose reduction, the following was used: automated exposure control, adjustment of mA and/or kV according to patient size. COMPARISON: None. FINDINGS: Image quality: Excellent. Lungs and pleura: No acute air space opacities. No pleural effusions or pneumothorax. Central and peripheral airways are patent and normal in caliber. Mediastinum: Heart size is normal. No pericardial effusion. No mediastinal or hilar adenopathy by size criteria. Thoracic aorta and central pulmonary arteries are normal in size. Esophagus is sam l in caliber. Small hiatal hernia. Bones and chest wall: No suspicious bony lesions. No vertebral body compression fractures. No axil tommy or supraclavicular adenopathy by size criteria. The thyroid is normal in size. Bilateral thyroi d nodules are present, largest of which is in the right lobe inferiorly measuring 13 mm diameter. Abdomen: Visualized portions of the upper abdomen demonstrate right and left hepatic lobe cysts, and are otherwise unremarkable. IMPRESSION: 1. No evidence of lung mass. If there is a history of known lung mass seen on prior imaging, comparis on to prior imaging can be performed when outside films are made available. 2. Thyroid nodules, which could be further assessed with ultrasound, if clinically indicated. CLINICAL RECOMMENDATION STATEMENTS: In patients <35 years with an ITN detected on CT, MRI, or extrathyroidal ultrasound, the Committee re commends further evaluation with dedicated thyroid ultrasound if the nodule is "e1 cm and has no susp icious imaging features, and if the patient has normal life expectancy. In patients "e35 years with an ITN detected on CT, MRI, or extrathyroidal ultrasound, the Committee r ecommends further evaluation with dedicated thyroid ultrasound if the nodule is "e1.5 cm and has no s uspicious imaging features, and if the patient has normal life expectancy. (ACR, 2014) Reviewed by: Catarino Varghese MD on 02/11/2021 4:08 PM PDT Approved by: Catarino Varghese MD on 02/11/2021 4:08 PM PDT Station ID: [id number]
== END 2021-02-11 07:02 | disposition home or self-care (01) ==
LOC: DI 07:01
PROVIDERS: ATTEND Physician Assistant Medical
DX: K76.89 Other specified diseases of liver (principal); E04.1 Nontoxic single thyroid nodule; K44.9 Diaphragmatic hernia without obstruction or gangrene

== ENCOUNTER 2021-02-11 07:02 | Outpatient (CLI) | payer BC ==
[2021-02-11] MEDS ORDERED: IOVERSOL 320 50 ML VIAL ONE (07:45)
[2021-02-11] MEDS ORDERED: IOVERSOL 320 100 ML VIAL IVP ONE ×2 (07:45→09:49)
[2021-02-11] MEDS ORDERED: IOVERSOL 320 50 ML VIAL PO ONE (09:49)
--- NOTE | 2021-02-11 10:38 | CT Report ---
PROCEDURE: Abdomen/Pelvis W INDICATIONS: PELVIC PAIN CONTRAST: IV CONTRAST: Optiray 320 ml: 100 PO CONTRAST: Optiray 320 ml50 TECHNIQUE: After the administration of oral and IV contrast, 5 mm thick sections acquired from the diaphragms to the symphysis. 5 mm thick coronal and sagittal reformats were acquired. For radiation dose reducti on, the following was used: automated exposure control, adjustment of mA and/or kV according to edward ent size. COMPARISON: November 14, 2020. FINDINGS: Inferior chest: No focal consolidation, pleural effusion, or pneumothorax. No cardiomegaly or perica rdial effusion. Gallbladder: The gallbladder is distended with a smooth thin wall. Biliary tree: No intra-or extrahepatic biliary ductal dilatation. Liver: The liver demonstrates normal enhancement, size, and contour. Ovoid hypoattenuating lesions ar e seen measuring up to 2.8 cm, most consistent with cysts and/or biliary hamartomas. Spleen: Normal enhancement, size and morphology is seen. Pancreas: Normal morphology without inflammatory changes. 7 mm fat attenuation lesion in the pancreat ic body (series 5, image 21), which may reflect a small lipoma. Adrenals: Normal size without masses. Kidneys/ureters: Normal size and morphology. No solid masses or hydronephrosis. Punctate, nonobstruct ing nephrolithiasis. Scattered cortical hypoattenuating lesions are seen measuring up to 5 mm, which may reflect cysts. Vasculature: No evidence of aneurysm or other significant vascular pathology. Lymphatic system: No pathologic enlargement by size criteria. GI/mesentery: No evidence of intestinal obstruction. Sigmoid diverticulosis with short segment of wal l thickening (i.e series 5, image 66). Normal appendix. Peritoneum/Retroperitoneum: No free intraperitoneal gas or large collection. Urinary bladder: The urinary bladder is distended with a smooth thin wall. Pelvic organs: No significant abnormality. Bones/soft tissues: No significant abnormality. IMPRESSION: 1.Sigmoid diverticulosis with short segment wall thickening, which may represent underdistention vers us early diverticulitis. Reviewed by: Jamal Maldonado MD on 02/11/2021 10:37 AM PDT Approved by: Jamal Maldonado MD on 02/11/2021 10:37 AM PDT Station ID: [id number]
== END 2021-02-11 07:03 | disposition home or self-care (01) ==
LOC: DI 07:02
PROVIDERS: ATTEND Surgery
DX: R10.2 Pelvic and perineal pain (principal); N39.0 Urinary tract infection, site not specified; K57.30 Diverticulosis of large intestine without perforation or abscess without bleeding; I35.8 Other nonrheumatic aortic valve disorders
CPT/HCPCS: 74177; Q9967

== ENCOUNTER 2021-03-15 16:22 | Outpatient (CLI) | payer BC ==
--- NOTE | 2021-03-18 12:03 | Ultrasound Report ---
PROCEDURE: Head or Neck Soft Tissue INDICATIONS: THYROID NODULE TECHNIQUE: Real-time scanning was performed of the thyroid gland, with image documentation. COMPARISON: None FINDINGS: Right: Thyroid lobe measures 5.2 x 1.6 x 1.8 cm, and is homogeneous in echotexture. Left: Thyroid lobe measures 4.0 x 1.4 x 1.3 cm, and is homogenous in echotexture. Isthmus: 2 mm thick. Multiple bilateral thyroid nodules are noted. 4 largest thyroid nodules are characterized below. Thyr oid nodules not characterized below are less than 5 mm in diameter. Nodule number: One Location: Right lateral-inferior Size: 1.6 x 1.0 x 1.1 cm. Composition: Predominantly solid Echogenicity: Isoechoic Shape: wider than tall. Margins: Smooth Echogenic foci: None Total points: 3 ACR TI-RADS category: Mildly suspicious Nodule number: Two Location: Right middle Size: 0.7 x 0.3 x 1.0 cm. Composition: Predominantly cystic/fungiform Echogenicity: Hypoechoic Shape: wider than tall. Margins: Smooth Echogenic foci: Peripheral calcification Total points: 4 ACR TI-RADS category: Moderately suspicious Nodule number: Three Location: Left superior Size: 1.4 x 0.7 x 1.0 cm. Composition: Solid Echogenicity: Isoechoic Shape: wider than tall. Margins: Smooth Echogenic foci: None Total points: 3 ACR TI-RADS category: Mildly suspicious Nodule number: Four Location: Left middle Size: 0.8 x 0.7 x 0.7 cm. Composition: Cystic Echogenicity: Anechoic Shape: wider than tall. Margins: Smooth Echogenic foci: Peripheral calcification Total points: 0 ACR TI-RADS category: Benign IMPRESSION: 1. Multiple thyroid nodules. 2. Nodule 2 in the right thyroid has moderately suspicious imaging characteristics with maximum diame ter 1.0 cm. Recommend follow-up thyroid ultrasound in 1, 2, 3 and 5 years. 3. Nodules 1 has mildly suspicious characteristics and measures 1.6 cm and diameter. Recommend reeval uation at time of nodule to follow-up at years 1, 3 and 5. 4. No follow up warranted for additional nodules based on criteria outlined below. ACR TI-RADS definitions and recommendations: TI-RADS 1 (benign): 0 points. FNA not needed. TI-RADS 2 (not suspicious): 2 points. FNA not needed. TI-RADS 3 (mildly suspicious): 3 points. "FNA if 2.5 cm or larger, follow up if 1.5 cm or larger (at 1, 3, and 5 years). TI-RADS 4 (moderately suspicious): 4-6 points. "FNA if 1.5 cm or larger, follow up if 1 cm or larger (at 1, 2, 3, and 5 years). TI-RADS 5 (highly suspicious): 7 points or more. "FNA if 1 cm or larger, follow up if 0.5 cm or larger (every year for 5 years). Reviewed by: Bridget Benz MD, PhD on 03/18/2021 12:01 PM PST Approved by: Bridget Benz MD, PhD on 03/18/2021 12:01 PM PST Station ID: [id number]
== END 2021-03-15 16:23 | disposition home or self-care (01) ==
LOC: DI 16:22
PROVIDERS: ATTEND Physician Assistant Medical
DX: E04.2 Nontoxic multinodular goiter (principal)

== ENCOUNTER 2021-04-15 08:00 | Outpatient (CLI) | payer BC | END 2021-04-15 23:59 | LOC: LAB 08:00 | PROVIDERS: ATTEND Physician Assistant Medical | DX: R10.32 Left lower quadrant pain (principal); N39.0 Urinary tract infection, site not specified | CPT/HCPCS: 87086 ==

== ENCOUNTER 2021-06-04 13:37 | Outpatient (CLI) | payer BC ==
[2021-06-04 18:43] LABS: BASOPHILS # (AUTO) 0.1 10^3/uL (0.0-0.1); BASOPHILS % (AUTO) 0.7 %; EOSINOPHILS # (AUTO) 0.1 10^3/uL (0.0-0.7); EOSINOPHILS % (AUTO) 1.3 %; HCT - HEMATOCRIT 41.1 % (37.0-47.0); HGB - HEMOGLOBIN 13.3 g/dL (12.0-16.0); LYMPHOCYTES # (AUTO) 1.6 10^3/uL (1.5-3.5); LYMPHOCYTES % (AUTO) 23.7 %; MEAN CORPUSCULAR HEMOGLOBIN 28.5 pg (27.0-31.0); MEAN CORPUSCULAR HGB CONC 32.4 g/dL (32.0-36.0); MEAN CORPUSCULAR VOLUME 88.2 fL (81.0-99.0); MEAN PLATELET VOLUME 11.3 fL (7.9-10.8); MONOCYTES # (AUTO) 0.7 10^3/uL (0.0-1.0); MONOCYTES % (AUTO) 9.6 %; NEUTROPHILS # (AUTO) 4.4 10^3/uL (1.5-6.6); NEUTROPHILS % (AUTO) 64.6 %; PLT - PLATELET COUNT 332 10^3/uL (130-450); RED BLOOD COUNT 4.66 10^6/uL (4.20-5.40); RED CELL DISTRIBUTION WIDTH 13.1 % (12.0-15.0); WHITE BLOOD COUNT 6.8 x10^3/uL (4.8-10.8)
[2021-06-04 18:52] LABS: ALBUMIN 4.3 g/dL (3.2-5.5); ALBUMIN/GLOBULIN RATIO 1.1 (1.0-2.2); BILIRUBIN,TOTAL 0.8 mg/dL (0.2-1.0); CALCIUM 9.5 mg/dL (8.5-10.3); CREATININE 0.6 mg/dL (0.4-1.0); POTASSIUM 3.8 mmol/L (3.5-5.0); TOTAL PROTEIN 8.1 g/dL (6.7-8.2)
[2021-06-04 19:02] LABS: THYROID STIMULATING HORMONE 1.96 uIU/mL (0.34-5.60)
== END 2021-06-04 13:38 | disposition home or self-care (01) ==
LOC: LAB.N 13:37
PROVIDERS: ATTEND Nurse Practitioner Family
DX: R00.2 Palpitations (principal); R07.89 Other chest pain
CPT/HCPCS: 36415; 80053; 84443; 85025

== ENCOUNTER 2021-12-09 14:58 | Outpatient (CLI) | payer BC ==
[2021-12-09 16:02] VITALS: BP 133/73
== END 2021-12-09 14:59 | disposition home or self-care (01) ==
LOC: MAC.MOP 14:58
PROVIDERS: ATTEND Nurse Practitioner
DX: R00.2 Palpitations (principal)
CPT/HCPCS: 93246

== ENCOUNTER 2022-01-02 10:30 | Outpatient (CLI) | payer BC | END 2022-01-02 10:31 | disposition home or self-care (01) | LOC: MAC.MOP 10:30 | PROVIDERS: ATTEND Nurse Practitioner | DX: R00.2 Palpitations (principal) | CPT/HCPCS: 93244 ==

== ENCOUNTER 2022-10-15 13:17 | Outpatient (CLI) | payer BC ==
--- NOTE | 2022-10-15 16:43 | XRAY Report ---
PROCEDURE: Foot 3 View RT INDICATIONS: FOOT PAIN,RIGHT TECHNIQUE: 3 views of the foot were acquired. COMPARISON: None. FINDINGS: Bones: No fractures or dislocations. No suspicious bony lesions. Metatarsus primus varus. Mild pe riarticular osteophyte formation at the first metatarsophalangeal joint. Soft tissues: No suspicious soft tissue calcifications or masses. IMPRESSION: Osteoarthritis. No acute fracture. No osseous lesion. If symptoms and/or clinical suspicion for patho logy continue, further assessment with repeat plain films, or advanced imaging (e.g., CT, MRI, or bon e scan) is recommended for further assessment. Reviewed by: Catarino Varghese MD on 10/15/2022 4:41 PM PDT Approved by: Catarino Varghese MD on 10/15/2022 4:41 PM PDT Station ID: [id number]
--- NOTE | 2022-10-15 16:43 | XRAY Report ---
PROCEDURE: Ankle 3 View RT INDICATIONS: FOOT PAIN,RIGHT TECHNIQUE: 3 views of the ankle were acquired. COMPARISON: None. FINDINGS: Bones: No fractures or dislocations. Ankle mortise is normally aligned. No suspicious bony lesions . Soft tissues: No tibiotalar joint effusion. Achilles tendon appears normal. IMPRESSION: No acute fracture. No osseous lesion. If symptoms and/or clinical suspicion for pathology continue, f urther assessment with repeat plain films, or advanced imaging (e.g., CT, MRI, or bone scan) is recom mended for further assessment. Reviewed by: Catarino Varghese MD on 10/15/2022 4:41 PM PDT Approved by: Catarino Varghese MD on 10/15/2022 4:41 PM PDT Station ID: [id number]
== END 2022-10-15 13:18 | disposition home or self-care (01) ==
LOC: DI 13:17
PROVIDERS: ATTEND Physician Assistant Medical
DX: M19.071 Primary osteoarthritis, right ankle and foot (principal)

== ENCOUNTER 2023-02-01 09:29 | Outpatient (CLI) | payer BC | END 2023-02-01 09:30 | disposition EMS.NT | LOC: EMS 09:29 | DX: Z77.29 Contact with and (suspected) exposure to other hazardous substances (principal); H53.8 Other visual disturbances ==

== ENCOUNTER 2023-02-01 10:39 | Emergency (ER) | payer BC ==
[2023-02-01] MEDS ORDERED: PROPARACAINE 0.5% OPHTH DROPS 15 ML RIGHTEYE STA (11:08)
[2023-02-01] MEDS ORDERED: PROPARACAINE 0.5% OPHTH DROPS 15 ML ONE (11:22)
--- NOTE | 2023-02-01 11:23 | ED Physician Documentation ---
PD HPI OPHTHO - Stated complaint Stated Complaint: CHEM IN RIGHT EYE - Chief complaint Chief Complaint: Heent - History obtained from History obtained from: Patient - History of Present Illness Location: Right Quality / character: Burning Associated symptoms: Redness, Tearing, FB sensation Contributing factors: Chemical exposure, acid - Additional information Additional information: 62-year-old female presents with right eye pain after accidentally getting Lysol toilet bowl conduit cleaner in her eye. The patient was cleaning the toilet with the plastic brush After placing Lysol gel toilet bowl conduit cleaner in the bowl. The brush flicked a spray of the solution which struck her in the right eye. She immediately had a burning sensation to the right eye and states she flushed it for at least 15 minutes at home with water. She was still Having discomfort so she called EMS who also flushed her eye with saline and then Poison control was called and they advised that if she was still having discomfort after flushing it thoroughly that they would recommend an evaluation in the ER. Patient states she has eye pain with burning and a foreign body sensation, she has tearing, and she is sensitive to light. She notes some right eyelid swelling as well. She has not had any change in her vision to her knowledge. She does not wear glasses or contacts regularly but does wear glasses when driving. She denies any other potential chemical exposure. Review of Systems Constitutional: reports: Reviewed and negative Eyes: reports: Photophobia, Irritation, Other (chemical exposure to right eye) Ears: reports: Reviewed and negative Nose: reports: Reviewed and negative Throat: reports: Reviewed and negative Cardiac: reports: Reviewed and negative Respiratory: reports: Reviewed and negative Skin: reports: Other (irritation to the right eyelid) Neurologic: reports: Reviewed and negative PD PAST MEDICAL HISTORY - Past Medical History Past Medical History: Yes Cardiovascular: High cholesterol, Arrhythmia Respiratory: Asthma Endocrine/Autoimmune: None GI: None : None HEENT: None Psych: Anxiety Musculoskeletal: None Derm: None - Past Surgical History Past Surgical History: Yes General: Colonoscopy /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 - Present Medications Home Medications: Ambulatory Orders Medication Instructions Recorded Confirmed Rosuvastatin Calcium [Crestor] 10 mg PO DAILY 10/01/16 02/01/23 Albuterol Sulf [Ventolin Hfa 1 - 2 puffs INH Q4HR PRN 02/01/23 02/01/23 Inhaler] Ibuprofen [Motrin] 1 tablet PO Q8H PRN #30 tablet 02/01/23 Tobramycin/Dexameth Ophth Oint 1 applic OP Q4H 7 Days #3.5 gm 02/01/23 [Tobradex Ophth Oint] - Allergies Allergies/Adverse Reactions: Allergies Allergy/AdvReac Type Severity Reaction Status Date / Time simvastatin [From Zocor] AdvReac Unknown Verified 02/01/23 10:53 - Social History Does the pt smoke?: No Smoking Status: Never smoker Does the pt drink ETOH?: No Does the pt have substance abuse?: No - Immunizations Immunizations are current?: Yes Immunizations: TDAP >10years/unknown PD ED PE NORMAL - Vitals Vital signs reviewed: Yes - General General: Alert and oriented X 3, No acute distress, Well developed/nourished - HEENT HEENT: Atraumatic, PERRL, EOMI, Other (right eyelid mildly swollen, pt clutching eye closed. there are two areas of corneal abrasion/burn on the cornea. globe appears intact. mild scleral redness and tearing. No foreign body noted. ) - Neck Neck: Supple, no meningeal sign, No adenopathy - Cardiac Cardiac: RRR, No murmur - Respiratory Respiratory: No respiratory distress, Clear bilaterally - Derm Derm: Normal color, Warm and dry, No rash - Neuro Neuro: Alert and oriented X 3 Eye Opening: Spontaneous Motor: Obeys Commands Verbal: Oriented GCS Score: 15 - Psych Psych: Normal mood, Normal affect PD ED PE EXPANDED - Eyes Eyes: Visual acuity - see nn, PERRL, Normal accommodation, EOMI, No eyelid FB (everted), Injected conj/sclera, Corneal abrasion, Fluorescein uptake Results - Vitals Vitals: Vital Signs - 24 hr 02/01/23 13:28 Temperature 36.6 C Heart Rate 82 Respiratory 16 Rate Blood Pressure 139/74 H O2 Saturation 100 Oxygen O2 Source Nasal cannula PD Medical Decision Making - ED course Complexity details: re-evaluated patient, considered differential, d/w patient, d/w family ED course: 62-year-old female presented after getting toilet bowl conduit cleaner in her right eye. On arrival here, patient has tearing and is wearing sunglasses due to pain with light exposure. I utilized proparacaine and stained her eye with fluorescein and noted 2 areas of Corneal abrasion likely due to Chemical acidic burn. The globe is intact, pupillary reflexes are normal and pH initially was 7. I did flush the patient's a with a Victor M's and 500 mL of normal saline given ongoing symptoms though pH was normal and patient tolerated this well. She had improvement in her symptoms with pain medication and irrigation, though continued to feel irritation in the right eye. I reevaluated the patient and initial eyelid and scleral edema had improved and nearly resolved. She does continue to have corneal yen visible. I confirmed the solution was Lysol toilet bowl conduit cleaner which is an acid with HCl, no alkaline material. Therefore with stable exam, I do think she is stable for discharge home with treatment for acidic burn of the right cornea. I have recommended she take ibuprofen and Tylenol as needed for pain, and we will start her on TobraDex every 4 hours while awake. The patient is to see the eye doctor tomorrow if ongoing symptoms, or return if at any point time if worsening including increased eye pain increased swelling, decreased vision, purulent drainage. The patient was advised that I anticipate some pain improvement over the next 24 hours and certainly within the next 48 hours symptoms should be nearly resolved. Departure - Departure Disposition: 01 Home, Self Care Clinical Impression: Chemical burn due to acid, cornea, right Qualifiers: Encounter type: initial encounter Qualified Code(s): T26.61XA - Corrosion of cornea and conjunctival sac, right eye, initial encounter Condition: Good Instructions: ED Chemical Conjunctivitis Prescriptions: Ibuprofen [Motrin] 1 tablet PO Q8H PRN #30 tablet PRN Reason: PAIN &/OR FEVER Tobramycin/Dexameth Ophth Oint [Tobradex Ophth Oint] 1 applic OP Q4H 7 Days #3.5 gm Comments: You should have some improvement by tomorrow and more the following day. If at any point in time you are worsening (eye swelling, purulent drainage, worsening pain, worsening vision), please return to the ER. Please follow up with eye doctor in the next few days. Medication sent to [facility] in [place] Forms: PCP List Discharge Date/Time: 02/01/23 13:28
[2023-02-01] MEDS ORDERED: IBUPROFEN 600 MG TABLET PO STA (12:25)
[2023-02-01] MEDS ORDERED: HYDROcod/ACETAM 5/325 MG TABLET PO STA (12:25)
[2023-02-01] MEDS ORDERED: DEXAMETHASONE RIGHTEYE ONE (12:26)
[2023-02-01] MEDS ORDERED: TOBRAMYCIN RIGHTEYE ONE (12:26)
[2023-02-01] MEDS ORDERED: ERYTHROMYCIN OPHTH OINT 1 GM TUBE RIGHTEYE STA (13:11)
[2023-02-01 13:34] VITALS: BP 139/74; O2SAT 100
== END 2023-02-01 13:28 | disposition home or self-care (01) ==
LOC: ED 10:39
DX: T54 Toxic effect of corrosive substances (principal); T26.61XA Corrosion of cornea and conjunctival sac, right eye, initial encounter; E78.00 Pure hypercholesterolemia, unspecified; Z79.899 Other long term (current) drug therapy
CPT/HCPCS: 99282; 99283; A9270; J3490

== ENCOUNTER 2023-02-03 07:50 | Outpatient (CLI) | payer BC ==
--- NOTE | 2023-02-04 11:44 | Mammography Report ---
BILATERAL DIGITAL SCREENING MAMMOGRAM 3D/2D: 02/03/2023 CLINICAL: Routine screening. Family history of breast cancer. Comparison is made to exams dated: 11/07/2020 mammogram, 06/21/2018 mammogram, and 10/27/2016 mammogram - [facility]. There are scattered areas of fibroglandular density in both breasts (category b / 25%-50% glandular t issue). No significant masses, calcifications, or other findings are seen in either breast. There has been no significant interval change. IMPRESSION: NEGATIVE There is no mammographic evidence of malignancy. A 1 year screening mammogram is recommended. Based on the Tyrer Cuzick model (a risk assessment model) the patients lifetime risk is 6.2% and her 10 year risk is 2.9%. According to the ACR, ACS, and NCCN guidelines, an annual breast MRI exam lennie g with mammogram is recommended if the patients lifetime risk is 20% or greater. This exam was interpreted at Station ID: [id number]. NOTE: For mammograms, a report in lay terms will be sent to the patient. Approximately 15% of breast malignancies will not be visualized mammographically. In the management of a palpable breast mass, a negative mammogram must not discourage biopsy of a clinically suspicious lesion. Electronically Signed By: Maynor ramos/dania:02/03/2023 17:29:09 letter sent: No_Letter ACR BI-RADS Category 1: Negative 3341F PARENCHYMAL PATTERN: (A) - The breast(s) demonstrate(s) scattered fibroglandular densities. BI-RADS CATEGORY: (1) - 1 Mammogram [id number] 1 year screening LATERALITY: (B)
== END 2023-02-03 07:51 | disposition home or self-care (01) ==
LOC: DI.S 07:50
DX: Z12.31 Encounter for screening mammogram for malignant neoplasm of breast (principal); Z80.3 Family history of malignant neoplasm of breast; R92.323 Mammographic fibroglandular density, bilateral breasts

== ENCOUNTER 2023-02-05 07:08 | Outpatient (CLI) | payer BC ==
[2023-02-05 15:15] LABS: BASOPHILS % (AUTO) 0.7 %; EOSINOPHILS # (AUTO) 0.2 10^3/uL (0.0-0.7); EOSINOPHILS % (AUTO) 3.1 %; HCT - HEMATOCRIT 43.1 % (37.0-47.0); HGB - HEMOGLOBIN 13.7 g/dL (12.0-16.0); LYMPHOCYTES # (AUTO) 1.7 10^3/uL (1.5-3.5); LYMPHOCYTES % (AUTO) 28.8 %; MEAN CORPUSCULAR HEMOGLOBIN 28.4 pg (27.0-31.0); MEAN CORPUSCULAR HGB CONC 31.8 g/dL (32.0-36.0); MEAN CORPUSCULAR VOLUME 89.4 fL (81.0-99.0); MEAN PLATELET VOLUME 11.4 fL (7.9-10.8); MONOCYTES # (AUTO) 0.5 10^3/uL (0.0-1.0); MONOCYTES % (AUTO) 9.1 %; NEUTROPHILS # (AUTO) 3.4 10^3/uL (1.5-6.6); NEUTROPHILS % (AUTO) 58.1 %; PLT - PLATELET COUNT 333 10^3/uL (130-450); RED BLOOD COUNT 4.82 10^6/uL (4.20-5.40); WHITE BLOOD COUNT 5.8 x10^3/uL (4.8-10.8)
[2023-02-05 15:58] LABS: ALBUMIN 4.5 g/dL (3.2-5.5); ALBUMIN/GLOBULIN RATIO 1.4 (1.0-2.2); ALKALINE PHOSPHATASE 102 IU/L (42-121); ALT ALANINE AMINOTRANSFERASE 21 IU/L (10-60); AST ASPARTATE AMINOTRANSFERASE 18 IU/L (10-42); BILIRUBIN,TOTAL 0.9 mg/dL (0.2-1.0); BUN - BLOOD UREA NITROGEN 15 mg/dL (6-20); CALCIUM 10.1 mg/dL (8.5-10.3); CARBON DIOXIDE - CO2 28 mmol/L (21-32); CHLORIDE 105 mmol/L (101-111); CHOL/HDL RATIO 4.2 (<4.4); CHOLESTEROL 192 mg/dL; CREATININE 0.8 mg/dL (0.6-1.3); GFR - MDRD 72 (>89); GLUCOSE 100 mg/dL (74-104); HDL CHOLESTEROL 46 mg/dL; LDL CHOLESTEROL,CALCULATED 102 mg/dL; LDL/HDL RATIO 2.2 (<4.4); SODIUM 139 mmol/L (135-145); TOTAL PROTEIN 7.7 g/dL (6.4-8.9); TRIGLYCERIDES 219 mg/dL (48-352); VLDL CHOLESTEROL 44 mg/dL
== END 2023-02-05 07:09 | disposition home or self-care (01) ==
LOC: LAB.S 07:08
PROVIDERS: ATTEND Physician Assistant Medical
DX: Z00.00 Encounter for general adult medical examination without abnormal findings (principal); E78.5 Hyperlipidemia, unspecified
CPT/HCPCS: 36415; 80053; 80061; 83721; 84443; 85025

== ENCOUNTER 2023-02-17 08:31 | Outpatient (CLI) | payer BC ==
--- NOTE | 2023-02-18 21:18 | Ultrasound Report ---
PROCEDURE: Head or Neck Soft Tissue INDICATIONS: THYROID NODULE TECHNIQUE: Real-time scanning was performed of the thyroid gland, with image documentation. COMPARISON: 03/15/2021 FINDINGS: Right: Thyroid lobe measures 5.1 x 1.9 x 2.1 cm, and is homogeneous in echotexture. Left: Thyroid lobe measures 4.0 x 1.7 x 1.5 cm, and is homogenous in echotexture. Isthmus: 3 mm thick. Nodule number: One Location: Right inferior lateral Size: 3.5 x 1.3 x 2.0 cm, previously 2.3 x 1.0 x 1.1 cm. Composition: Predominantly solid. Echogenicity: Isoechoic to hypoechoic. Shape: wider than tall (0 points). Margins: Indistinct. Echogenic foci: None (0 points). Total points: 3 to 4 ACR TI-RADS category: Mild to moderately suspicious Nodule number: Two Location: Right superior midpole Size: 1.7 x 0.3 x 0.8 cm, previously 0.7 x 0.3 x 1.0 cm. Composition: Solid. Echogenicity: Hypoechoic. Shape: wider than tall (0 points). Margins: Smooth (0 points). Echogenic foci: None (0 points). Total points: 4 ACR TI-RADS category: Moderately suspicious Nodule number: Three Location: Left superior pole Size: 1.5 x 0.8 x 1.3 cm, previously 1.4 x 0.7 x 1.0 cm. Composition: Solid. Echogenicity: Isoechoic. Shape: wider than tall (0 points). Margins: Smooth (0 points). Echogenic foci: None (0 points). Total points: 3 ACR TI-RADS category: Mildly suspicious Nodule number: Four Location: Left midpole Size: 0.5 cm, previously 0.8 cm. Composition: Cystic. Echogenicity: Hypoechoic to anechoic. Shape: wider than tall (0 points). Margins: Smooth (0 points). Echogenic foci: Macrocalcification. Total points: 4 ACR TI-RADS category: Moderately suspicious Nodule number: 5 Location: Left inferior medial Size: 0.5 cm, previously 0.4 cm Composition: Solid Echogenicity: Hypoechoic Shape: Wider than tall Margins: Smooth Echogenic foci: None Total points: 4 Type RADS category: Moderately suspicious IMPRESSION: 1. Stable thyroid gland size with several nodules as described. The increase in size of right-sided n odules corresponds to changes in measurement of heterogeneous gland and including different tissue in the nodule measurement. There may be slight size changes despite this, however these are unlikely to be clinically significant and both demonstrate mild to moderately suspicious characteristics, but ar e essentially unchanged in morphology. 2. Left-sided thyroid nodules are relatively stable size. 3. Continued follow-up recommended in one to 2 years. ACR TI-RADS definitions and recommendations: TI-RADS 1 (benign): 0 points. FNA not needed. TI-RADS 2 (not suspicious): 2 points. FNA not needed. TI-RADS 3 (mildly suspicious): 3 points. "FNA if 2.5 cm or larger, follow up if 1.5 cm or larger (at 1, 3, and 5 years). TI-RADS 4 (moderately suspicious): 4-6 points. "FNA if 1.5 cm or larger, follow up if 1 cm or larger (at 1, 2, 3, and 5 years). TI-RADS 5 (highly suspicious): 7 points or more. "FNA if 1 cm or larger, follow up if 0.5 cm or larger (every year for 5 years). Reviewed by: Megan Ybarra MD on 02/18/2023 9:16 PM PST Approved by: Megan Ybarra MD on 02/18/2023 9:16 PM PST Station ID: [id number]
== END 2023-02-17 08:32 | disposition home or self-care (01) ==
LOC: DI 08:31
PROVIDERS: ATTEND Physician Assistant Medical
DX: E04.2 Nontoxic multinodular goiter (principal)

== ENCOUNTER 2023-06-17 16:38 | Emergency (ER) | payer BC ==
[2023-06-17 17:37] LABS: BASOPHILS # (AUTO) 0.1 10^3/uL (0.0-0.1); BASOPHILS % (AUTO) 0.6 %; EOSINOPHILS # (AUTO) 0.2 10^3/uL (0.0-0.7); EOSINOPHILS % (AUTO) 1.7 %; HCT - HEMATOCRIT 44.1 % (37.0-47.0); HGB - HEMOGLOBIN 14.3 g/dL (12.0-16.0); LYMPHOCYTES # (AUTO) 2.1 10^3/uL (1.5-3.5); LYMPHOCYTES % (AUTO) 19.3 %; MEAN CORPUSCULAR HEMOGLOBIN 28.1 pg (27.0-31.0); MEAN CORPUSCULAR HGB CONC 32.4 g/dL (32.0-36.0); MEAN CORPUSCULAR VOLUME 86.6 fL (81.0-99.0); MEAN PLATELET VOLUME 8.7 fL (7.9-10.8); MONOCYTES # (AUTO) 0.9 10^3/uL (0.0-1.0); NEUTROPHILS # (AUTO) 7.5 10^3/uL (1.5-6.6); NEUTROPHILS % (AUTO) 70.1 %; PLT - PLATELET COUNT 348 10^3/uL (130-450); RED BLOOD COUNT 5.09 10^6/uL (4.20-5.40); RED CELL DISTRIBUTION WIDTH 12.6 % (12.0-15.0); WHITE BLOOD COUNT 10.7 x10^3/uL (4.8-10.8)
[2023-06-17 17:47] LABS: ALBUMIN 4.8 g/dL (3.2-5.5); ALBUMIN/GLOBULIN RATIO 1.4 (1.0-2.2); BILIRUBIN,TOTAL 0.6 mg/dL (0.2-1.0); CALCIUM 10.2 mg/dL (8.5-10.3); CREATININE 0.7 mg/dL (0.6-1.3); POTASSIUM 3.7 mmol/L (3.5-4.5); TOTAL PROTEIN 8.3 g/dL (6.4-8.9)
[2023-06-17 19:25] LABS: BILIRUBIN,URINE NEGATIVE (NEGATIVE); GLUCOSE, URINE (UA) NEGATIVE (NEGATIVE); KETONES,URINE (UA) 40 mg/dL (NEGATIVE); LEUKOCYTE ESTERASE, URINE MODERATE (NEGATIVE); NITRITE,URINE NEGATIVE (NEGATIVE); OCCULT BLOOD,URINE MODERATE (NEGATIVE); PROTEIN,URINE NEGATIVE (NEGATIVE); UROBILINOGEN,URINE 0.2 (NORMAL) E.U./dL (NORMAL)
[2023-06-17 19:28] LABS: CLARITY,URINE HAZY (CLEAR)
[2023-06-17 19:36] LABS: BACTERIA,URINE Few /HPF (None Seen); EPITHELIAL CELLS,UR FEW Transitional /HPF (<= Few); SQUAMOUS EPITHELIAL CELL,UR MOD Squamous (<= Few); WBC,URINE >25 /HPF (0-5)
[2023-06-17] MEDS ORDERED: iohexoL-300 100 ML VIAL ONE (19:47)
--- NOTE | 2023-06-17 20:59 | CT Report ---
PROCEDURE: Abdomen/Pelvis W INDICATIONS: lower abd pain, h/o diverticulitis CONTRAST: Omni 300 100ml TECHNIQUE: After the administration of intravenous contrast, a CT scan of the abdomen and pelvis was performed. Images were recorded and evaluated at appropriate window settings. Reformats: coronal and sagittal. F or radiation dose reduction, the following was used: automated exposure control, adjustment of mA and /or kV according to patient size. COMPARISON: 02/11/2021 and 11/14/2020. FINDINGS: Image quality: Diagnostic. Lower chest: Unremarkable. Liver: No solid mass. Multiple well-circumscribed fluid density areas are again seen scattered in the liver parenchyma unchanged from prior studies and are consistent with hepatic cysts. Gallbladder and biliary tree: No radiopaque stones or wall thickening. No biliary dilation. Spleen: No splenomegaly. Pancreas: No pancreatic ductal dilation. Adrenals: No adrenal nodule. Kidneys and ureters: No hydronephrosis. No renal cystic lesion which requires follow up. No solid mas s. Stomach, bowel and peritoneum: There is no bowel obstruction. Appendix is visualized in the right low er quadrant and is within normal limits. Segmental proximal sigmoid colon wall thickening with madan lonic fat stranding is seen in left lower quadrant most consistent with acute diverticulitis. No absc ess collection. No extraluminal air. No free fluid of free air. Lymph nodes: No central or retroperitoneal adenopathy. Vessels: No infrarenal aortic aneurysm. PELVIS Reproductive organs: Unremarkable. Bladder: No abnormal wall thickening, accounting for underdistention. Pelvic lymph nodes: No pelvic adenopathy by size criteria. Bones: No aggressive osseous abnormality. Other: No significant ventral or inguinal hernia. IMPRESSION: 1. Acute diverticulitis involving proximal sigmoid colon in the left lower quadrant. No abscess colle ction. No evidence of perforation. No free fluid of free air. Normal appendix. 2. Stable appearing hepatic cysts. Reviewed by: Addison Dickinson MD on 06/17/2023 8:58 PM PST Approved by: Addison Dickinson MD on 06/17/2023 8:58 PM PST Station ID: [id number]
[2023-06-17] MEDS: AMOX/CLAV 875 MG/125 MG TABLET PO STA (21:06)
[2023-06-17] MEDS: iohexoL-300 100 ML VIAL IVP ONE (21:09)
--- NOTE | 2023-06-17 21:15 | ED Physician Documentation ---
PD HPI ABD PAIN - Stated complaint Stated Complaint: ABD PX - Chief complaint Chief Complaint: Abd Pain - History obtained from History obtained from: Patient, Family - History of Present Illness Pain level max: 5 Pain level now: 5 Quality: Aching, Pain Location: Suprapubic, LLQ Radiation: No: Chest, , Lower back, Left flank, Left shoulder, Right flank, Right shoulder, Upper back Improved by: Laying still Worsened by: Moving, Palpation Associated symptoms: No: Fever, Nausea, Vomiting, Hematemesis, Diarrhea, Constipation, Melena, Hematochezia, Dysuria, Hematuria - Additional information Additional information: 62-year-old female with 4 days of lower abdominal pain. Feels similar to prior episodes of diverticulitis. No fevers. No chills. No nausea or vomiting. No diarrhea. No constipation. Nothing makes it better or worse. Was seen in the walk-in clinic and sent here for further evaluation. No blood in the stool. No recent antibiotics. No recent travel. 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 - Present Medications Home Medications: Ambulatory Orders Medication Instructions Recorded Confirmed Rosuvastatin Calcium [Crestor] 10 mg PO DAILY 10/01/16 06/17/23 Albuterol Sulf [Ventolin Hfa 1 - 2 puffs INH Q4HR PRN 02/01/23 06/17/23 Inhaler] Ibuprofen [Motrin] 1 tablet PO Q8H PRN #30 tablet 02/01/23 06/17/23 Tobramycin/Dexameth Ophth Oint 1 applic OP Q4H 7 Days #3.5 gm 02/01/23 06/17/23 [Tobradex Ophth Oint] Amox/Clav 875/125 [Augmentin] 1 each PO Q8H #30 tablet 06/17/23 - Allergies Allergies/Adverse Reactions: Allergies Allergy/AdvReac Type Severity Reaction Status Date / Time simvastatin [From Zocor] AdvReac Unknown Verified 06/17/23 17:20 - Social History Does the pt smoke?: No Smoking Status: Never smoker Does the pt drink ETOH?: No Does the pt have substance abuse?: No - Immunizations Immunizations are current?: Yes Immunizations: TDAP >10years/unknown PD ED PE NORMAL - Vitals Vital signs reviewed: Yes - General General: Alert and oriented X 3, No acute distress - HEENT HEENT: PERRL, Moist mucous membranes - Neck Neck: Supple, no meningeal sign - Cardiac Cardiac: RRR, Strong equal pulses - Respiratory Respiratory: No respiratory distress, Clear bilaterally - Abdomen Abdomen: Soft, Non distended, Other (Mild tenderness to palpation suprapubic and left lower quadrant. No peritoneal signs.) - Back Back: No CVA TTP - Derm Derm: Warm and dry - Extremities Extremities: No edema - Neuro Neuro: Alert and oriented X 3 - Psych Psych: Normal mood, Normal affect Results - Vitals Vitals: Vital Signs - 24 hr 06/17/23 06/17/23 06/17/23 17:12 20:43 20:44 Temperature 36.8 C Heart Rate 95 72 97 Respiratory 16 20 16 Rate Blood Pressure 170/90 H 129/93 H 158/87 H O2 Saturation 100 95 100 06/17/23 21:22 Temperature Heart Rate 83 Respiratory 16 Rate Blood Pressure 136/85 H O2 Saturation 98 Oxygen O2 Source Room air - Labs Labs: Laboratory Tests 06/17/23 06/17/23 06/17/23 17:28 17:28 19:15 WBC 10.7 RBC 5.09 Hgb 14.3 Hct 44.1 MCV 86.6 MCH 28.1 MCHC 32.4 RDW 12.6 Plt Count 348 MPV 8.7 Neut # (Auto) 7.5 H Lymph # (Auto) 2.1 Emmet # (Auto) 0.9 Eos # (Auto) 0.2 Baso # (Auto) 0.1 Absolute Nucleated RBC 0.00 Nucleated RBC % 0.0 Sodium 139 Potassium 3.7 Chloride 102 Carbon Dioxide 29 Anion Gap 8.0 BUN 12 Creatinine 0.7 Estimated GFR (MDRD) 84 L Glucose 97 Calcium 10.2 Total Bilirubin 0.6 AST 19 ALT 32 Alkaline Phosphatase 105 Total Protein 8.3 Albumin 4.8 Globulin 3.5 Albumin/Globulin Ratio 1.4 Lipase 19 Urine Color YELLOW Urine Clarity HAZY Urine pH 6.0 Ur Specific Mcdaniel 1.020 Urine Protein NEGATIVE Urine Glucose (UA) NEGATIVE Urine Ketones 40 H Urine Occult Blood MODERATE H Urine Nitrite NEGATIVE Urine Bilirubin NEGATIVE Urine Urobilinogen 0.2 (NORMAL) Ur Leukocyte Esterase MODERATE H Urine RBC 6-10 H Urine WBC >25 H Ur Epithelial Cells FEW Transitional Ur Squamous Epith Cells MOD Squamous H Urine Bacteria Few Ur Microscopic Review INDICATED Urine Culture Comments NOT INDICATED - Rads (name of study) CT abdomen pelvis Relevant Findings:: Final report received, See rad report PD Medical Decision Making - ED course Complexity details: reviewed results, re-evaluated patient, considered differential, d/w patient ED course: 62-year-old female presents to the emergency department with abdominal pain. Symptoms are consistent with her prior episodes of diverticulitis. No significant lab abnormalities. Urinalysis does show a bladder infection. She also has sigmoid diverticulitis on her CT scan. No perforation. No abscess. Patient is well-appearing, nontoxic. Afebrile. We will place on Augmentin as this should cover the UTI as well as the diverticulitis. Discussed risks and benefits of treating diverticulitis with antibiotics including C. difficile infection, patient accepts these risks. Also discussed watchful waiting of the diverticulitis to see if it resolves on its own, patient elects antibiotics. Patient counseled regarding signs and symptoms for which I believe and urgent re-evaluation would be necessary. Patient with good understanding of and agreement to plan and is comfortable going home at this time This document was made in part using voice recognition software. While efforts are made to proofread this document, sound alike and grammatical errors may occur. Departure - Departure Disposition: Home, Self Care Clinical Impression: Diverticulitis Condition: Good Instructions: ED Diverticulitis Follow-Up: Raquel Garza PA-C [Primary Care Provider] - Within 1 week Prescriptions: Amox/Clav 875/125 [Augmentin] 1 each PO Q8H #30 tablet Comments: Your prescription was sent to [facility] in [place]. Please take all antibiotics until gone. Please follow-up with your doctor for further care. Your CT scan does show acute sigmoid diverticulitis. Your CT scan reading is below. PROCEDURE: Abdomen/Pelvis W INDICATIONS: lower abd pain, h/o diverticulitis CONTRAST: Omni 300 100ml TECHNIQUE: After the administration of intravenous contrast, a CT scan of the abdomen and pelvis was performed. Images were recorded and evaluated at appropriate window settings. Reformats: coronal and sagittal. For radiation dose reduction, the following was used: automated exposure control, adjustment of mA and/or kV according to patient size. COMPARISON: 02/11/2021 and 11/14/2020. FINDINGS: Image quality: Diagnostic. Lower chest: Unremarkable. Liver: No solid mass. Multiple well-circumscribed fluid density areas are again seen scattered in the liver parenchyma unchanged from prior studies and are consistent with hepatic cysts. Gallbladder and biliary tree: No radiopaque stones or wall thickening. No biliary dilation. Spleen: No splenomegaly. Pancreas: No pancreatic ductal dilation. Adrenals: No adrenal nodule. Kidneys and ureters: No hydronephrosis. No renal cystic lesion which requires follow up. No solid mass. Stomach, bowel and peritoneum: There is no bowel obstruction. Appendix is visualized in the right lower quadrant and is within normal limits. Segmental proximal sigmoid colon wall thickening with pericolonic fat stranding is seen in left lower quadrant most consistent with acute diverticulitis. No abscess collection. No extraluminal air. No free fluid of free air. Lymph nodes: No central or retroperitoneal adenopathy. Vessels: No infrarenal aortic aneurysm. PELVIS Reproductive organs: Unremarkable. Bladder: No abnormal wall thickening, accounting for underdistention. Pelvic lymph nodes: No pelvic adenopathy by size criteria. Bones: No aggressive osseous abnormality. Other: No significant ventral or inguinal hernia. IMPRESSION: 1. Acute diverticulitis involving proximal sigmoid colon in the left lower quadrant. No abscess collection. No evidence of perforation. No free fluid of free air. Normal appendix. 2. Stable appearing hepatic cysts. Forms: PCP List Discharge Date/Time: 06/17/23 21:23
[2023-06-17 21:32] VITALS: BP 136/85; O2SAT 98
== END 2023-06-17 21:23 | disposition home or self-care (01) ==
LOC: ED 16:38
DX: K57.32 Diverticulitis of large intestine without perforation or abscess without bleeding (principal); N30.90 Cystitis, unspecified without hematuria
CPT/HCPCS: 36415; 74177; 80053; 81001; 83690; 85025; 99284; A9270; Q9967; 81003; 87086

== ENCOUNTER 2023-06-30 10:54 | Outpatient (CLI) | payer BC ==
[2023-06-30 11:11] LABS: BILIRUBIN,URINE NEGATIVE (NEGATIVE); GLUCOSE, URINE (UA) NEGATIVE (NEGATIVE); KETONES,URINE (UA) NEGATIVE (NEGATIVE); LEUKOCYTE ESTERASE, URINE NEGATIVE (NEGATIVE); NITRITE,URINE NEGATIVE (NEGATIVE); OCCULT BLOOD,URINE SMALL (NEGATIVE); PROTEIN,URINE NEGATIVE (NEGATIVE); UROBILINOGEN,URINE 0.2 (NORMAL) E.U./dL (NORMAL)
[2023-06-30 11:12] LABS: BASOPHILS # (AUTO) 0.1 10^3/uL (0.0-0.1); BASOPHILS % (AUTO) 0.7 %; EOSINOPHILS # (AUTO) 0.1 10^3/uL (0.0-0.7); EOSINOPHILS % (AUTO) 0.9 %; HCT - HEMATOCRIT 42.8 % (37.0-47.0); HGB - HEMOGLOBIN 13.7 g/dL (12.0-16.0); LYMPHOCYTES # (AUTO) 1.5 10^3/uL (1.5-3.5); LYMPHOCYTES % (AUTO) 21.8 %; MEAN CORPUSCULAR HEMOGLOBIN 28.3 pg (27.0-31.0); MEAN CORPUSCULAR VOLUME 88.4 fL (81.0-99.0); MEAN PLATELET VOLUME 8.6 fL (7.9-10.8); MONOCYTES # (AUTO) 0.6 10^3/uL (0.0-1.0); MONOCYTES % (AUTO) 8.3 %; NEUTROPHILS # (AUTO) 4.8 10^3/uL (1.5-6.6); PLT - PLATELET COUNT 346 10^3/uL (130-450); RED BLOOD COUNT 4.84 10^6/uL (4.20-5.40); RED CELL DISTRIBUTION WIDTH 12.7 % (12.0-15.0)
[2023-06-30 11:24] LABS: CLARITY,URINE CLEAR (CLEAR)
[2023-06-30 11:29] LABS: ALBUMIN 4.5 g/dL (3.2-5.5); ALBUMIN/GLOBULIN RATIO 1.3 (1.0-2.2); BILIRUBIN,TOTAL 0.9 mg/dL (0.2-1.0); CREATININE 0.7 mg/dL (0.6-1.3); POTASSIUM 3.7 mmol/L (3.5-4.5); TOTAL PROTEIN 7.9 g/dL (6.4-8.9)
[2023-06-30 11:35] LABS: BACTERIA,URINE Few /HPF (None Seen); RBC,URINE 0-5 /HPF (0-5); SQUAMOUS EPITHELIAL CELL,UR RARE Squamous (<= Few); WBC,URINE 0-3 /HPF (0-5)
== END 2023-06-30 10:55 | disposition home or self-care (01) ==
LOC: LAB 10:54
PROVIDERS: ATTEND Nurse Practitioner
DX: R10.9 Unspecified abdominal pain (principal)
CPT/HCPCS: 36415; 80053; 81001; 82150; 83690; 85025; 87086

== ENCOUNTER 2023-06-30 14:29 | Emergency (ER) | payer BC ==
[2023-06-30 14:38] VITALS: O2SAT 100
--- NOTE | 2023-06-30 14:53 | ED Physician Documentation ---
PD HPI ABD PAIN - Stated complaint Stated Complaint: ABD PX - Chief complaint Chief Complaint: Abd Pain - History obtained from History obtained from: Patient - Additional information Additional information: Very nice 62-year-old lady with recurrent diverticulitis. Was seen in the ED 13 days ago after 3 days of typical diverticulitis type pain. Here she had mild leukocytosis of 10,000 and had uncomplicated diverticulitis on CT. She was treated with Augmentin as an outpatient. She immediately felt better for the intervening couple of days and felt well until she took her last dose of antibiotics on Thursday. Thursday began having some left mid abdomen to left flank pain. This is crampy but also sharp. Is better if she holds her side. She does not have chest pain or shortness of breath. She has normal bowel movements. She feels she might have some dysuria and mild urinary frequency. No fevers or chills. Surgical history markable for tubal ligation. She spoke to her primary care physician for ED follow-up and mention that to her pain was recurring they sent her for outpatient lab work today which revealed a white count of 7 otherwise unremarkable chemistry profile. She was awaiting those lab results when she was at home and felt that her pain was worsening and that she should be seen in the emergency department. Review of Systems Constitutional: denies: Fever, Chills GI: denies: Nausea, Vomiting, Constipation, Diarrhea, Bloody / black stool : reports: Dysuria, Frequency PD PAST MEDICAL HISTORY - Past Medical History Past Medical History: Yes Cardiovascular: High cholesterol, Arrhythmia Respiratory: Asthma Neuro: None Endocrine/Autoimmune: None GI: None, Diverticulitis : None HEENT: None Psych: Anxiety Musculoskeletal: None Derm: None - Past Surgical History Past Surgical History: Yes General: Colonoscopy /[employer]: Tubal ligation - Present Medications Home Medications: Ambulatory Orders Medication Instructions Recorded Confirmed Rosuvastatin Calcium [Crestor] 10 mg PO DAILY 10/01/16 06/30/23 Albuterol Sulf [Ventolin Hfa 1 - 2 puffs INH Q4HR PRN 02/01/23 06/30/23 Inhaler] Ibuprofen [Motrin] 1 tablet PO Q8H PRN #30 tablet 02/01/23 06/30/23 Ciprofloxacin HCl 1 tablet PO BID 10 Days #20 tablet 06/30/23 metroNIDAZOLE [Flagyl] 500 mg PO BID 10 Days #20 tablet 06/30/23 - Allergies Allergies/Adverse Reactions: Allergies Allergy/AdvReac Type Severity Reaction Status Date / Time simvastatin [From Zocor] AdvReac Unknown Verified 06/30/23 14:33 - Social History Does the pt smoke?: No Smoking Status: Never smoker Does the pt drink ETOH?: No Does the pt have substance abuse?: No - Immunizations Immunizations are current?: Yes Immunizations: TDAP >10years/unknown - POLST Patient has POLST: No PD ED PE NORMAL - Vitals Vital signs reviewed: Yes - General General: Alert and oriented X 3 - HEENT HEENT: Atraumatic, Pharynx benign - Neck Neck: Supple, no meningeal sign, No JVD - Cardiac Cardiac: RRR, No murmur - Respiratory Respiratory: No respiratory distress - Abdomen Abdomen: Soft, Other (She has mild tenderness to palpation in the left side of her mid to upper abdomen. . Bowel sounds are present. No peritoneal signs. No CVA tenderness. No rash.) - Back Back: No CVA TTP - Extremities Extremities: No deformity, No edema - Neuro Neuro: Alert and oriented X 3 - Psych Psych: Normal mood Results - Vitals Vitals: Vital Signs - 24 hr 06/30/23 06/30/23 14:33 14:46 Temperature 36.5 C 98.2 C H Heart Rate 100 108 H Respiratory 16 20 Rate Blood Pressure 160/80 H 154/86 H O2 Saturation 100 100 Oxygen O2 Source Room air - Labs Labs: Reviewed her CBC and chemistry profile that was drawn as outpatient earlier today and these are completely normal and reassuring. - Rads (name of study) ct abd/pelvis Relevant Findings:: Final report received PD Medical Decision Making - ED course Complexity details: reviewed old records, reviewed results, considered differential (Consider recurrent or incompletely treated diverticulitis or complication thereof such as diverticular abscess. Also consider urinary tract source such as pyelonephritis or renal colic. Doubt this is a presentation of a AAA or pulmonary embolus. She was quite well-appearing. Will check CT scan a) ED course: Reviewed today's CT report- per radiology: COMPARISON: 06/17/2023 FINDINGS: Image quality: Diagnostic Lower chest: Left base scarring. Heart size is within normal limits. Liver: There are hepatic cysts. Subcentimeter lesions are too small to characterize, probably also cysts. Gallbladder and biliary system: Unremarkable, nondilated Pancreas: No ductal dilation Spleen: Nonenlarged Adrenals: No discrete nodules Kidneys: No solid mass or hydronephrosis. Punctate right lower pole nonobstructing calculus. No complicated cystic lesions requiring follow-up. Subcentimeter lesions are too small to characterize, probably cysts. Vessels and lymph nodes: The main portal vein is patent. No abdominal aortic aneurysm or pathologic lymph nodes by size criteria. Bowel and peritoneum: No evidence of small bowel obstruction. No drainable abscess. No pathologic ascites. Colonic diverticula. Previously identified sigmoid inflammatory changes have decreased, how ever there is new increased diverticular inflammation in the descending colon. The appendix is nondilated. Body wall: Tiny fat-containing umbilical hernia. Pelvis: Prominent pelvic veins. Bladder is unremarkable. Reproductive organs not well evaluated on this study, grossly unremarkable Bones: Degenerative changes, no acute or suspicious findings. IMPRESSION: No abscess or drainable ascites. Previously seen sigmoid diverticular inflammation is decreased. However, there is increased diverticular inflammation and descending colon, separate from the previous episode. Consider GI follow-up given recurrent episodes. Other findings as above. Given recurrence of symptoms and new findings, will extend her antibiotic course. Needs GI evaluation- will additionally recommend liquids Will change her abx from augmentin to cipro/flagyl Departure - Departure Disposition: 01 Home, Self Care Clinical Impression: Diverticulitis of gastrointestinal tract Instructions: Diverticulitis Dc Follow-Up: Raquel Garza PA-C [Primary Care Provider] - Prescriptions: Ciprofloxacin HCl 1 tablet PO BID 10 Days #20 tablet metroNIDAZOLE [Flagyl] 500 mg PO BID 10 Days #20 tablet Comments: Since your diverticulitis has recurred in a slightly different location of your colon, will change her antibiotics to Cipro and Flagyl. It is important that you follow dietary instructions including liquid low residue diet. Follow-up with primary care physician in 1 week. Consider outpatient GI evaluation. Forms: PCP List
[2023-06-30] MEDS: SODIUM CHLORIDE 0.9% 1,000 ML IV STA (15:18)
[2023-06-30] MEDS ORDERED: iohexoL-300 100 ML VIAL ONE (15:20)
[2023-06-30] MEDS: KETOROLAC 30 MG/ML VIAL IVP STA (15:22)
[2023-06-30] MEDS: iohexoL-300 100 ML VIAL IVP ONE (16:07)
--- NOTE | 2023-06-30 16:20 | CT Report ---
PROCEDURE: Abdomen/Pelvis W INDICATIONS: Left abd pain, recent tx diverticulitis CONTRAST: Omni 300 100ml TECHNIQUE: After the administration of intravenous contrast, a CT scan of the abdomen and pelvis was performed. Images were recorded and evaluated at appropriate window settings. Reformats: coronal and sagittal. F or radiation dose reduction, the following was used: automated exposure control, adjustment of mA and /or kV according to patient size. COMPARISON: 06/17/2023 FINDINGS: Image quality: Diagnostic Lower chest: Left base scarring. Heart size is within normal limits. Liver: There are hepatic cysts. Subcentimeter lesions are too small to characterize, probably also cy sts. Gallbladder and biliary system: Unremarkable, nondilated Pancreas: No ductal dilation Spleen: Nonenlarged Adrenals: No discrete nodules Kidneys: No solid mass or hydronephrosis. Punctate right lower pole nonobstructing calculus. No compl icated cystic lesions requiring follow-up. Subcentimeter lesions are too small to characterize, proba lilia cysts. Vessels and lymph nodes: The main portal vein is patent. No abdominal aortic aneurysm or pathologic l ymph nodes by size criteria. Bowel and peritoneum: No evidence of small bowel obstruction. No drainable abscess. No pathologic asc ites. Colonic diverticula. Previously identified sigmoid inflammatory changes have decreased, however there is new increased diverticular inflammation in the descending colon. The appendix is nondilated . Body wall: Tiny fat-containing umbilical hernia. Pelvis: Prominent pelvic veins. Bladder is unremarkable. Reproductive organs not well evaluated on is study, grossly unremarkable Bones: Degenerative changes, no acute or suspicious findings. IMPRESSION: No abscess or drainable ascites. Previously seen sigmoid diverticular inflammation is decreased. However, there is increased diverticu lar inflammation and descending colon, separate from the previous episode. Consider GI follow-up give n recurrent episodes. Other findings as above. Reviewed by: Jimmy Jimenez MD on 06/30/2023 4:18 PM PDT Approved by: Jimmy Jimenez MD on 06/30/2023 4:18 PM PDT Station ID: [id number]
[2023-06-30 16:51] VITALS: BP 118/71
== END 2023-06-30 16:41 | disposition home or self-care (01) ==
LOC: ED 14:29
DX: K57.32 Diverticulitis of large intestine without perforation or abscess without bleeding (principal)
CPT/HCPCS: 36415; 74177; 80053; 81001; 82150; 83690; 85025; 96374; 99284; Q9967; 87086